=== PATIENT | male | born 1955 | race Hispanic/Latino ===

== ENCOUNTER 2019-03-12 12:16 | Outpatient (CLI) | payer MEDICARE, OTHER, SELFPAY ==
--- NOTE | ~2019-03-12 | XR_ITS ---
EXAMINATION: XR knee LT min 4V DATE: 03/12/2019 12:47 INDICATION: Left knee pain. TECHNIQUE: 5 views of left knee were obtained. COMPARISON: Left knee radiographs 11/09/2017 FINDINGS: Bone alignment is normal. No fracture. There is mild tricompartmental osteoarthritis. There is a small knee joint effusion. IMPRESSION: 1. Mild left knee osteoarthritis. 2. Small left knee joint effusion. Reviewed, dictated and finalized at location A. 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
== END 2019-03-12 12:17 | disposition home or self-care (01) ==
LOC: ANHIMG 12:25
PROVIDERS: PCP Family Medicine; Visit Provider Family Medicine
DX: M25.562 Pain in left knee (principal); M17.12 Unilateral primary osteoarthritis, left knee; M25.462 Effusion, left knee
CPT/HCPCS: 73564

== ENCOUNTER 2019-11-13 11:18 | Outpatient (CLI) | payer MEDICARE, OTHER, SELFPAY ==
[2019-11-13 11:42] LABS: Hematocrit 43.1 % (42.0-52.0); Hemoglobin 14.4 g/dL (14.0-18.0); Mean Corpuscular HGB Conc 33.4 g/dl (32-36); Mean Corpuscular Hemoglobin 29.6 pg (26-34); Mean Corpuscular Volume 88.5 fl (80-100); Mean Platelet Volume 10.3 fl (7.4-10.4); Platelet Count Result 184 k/mm3 (150-375); Red Blood Count 4.87 M/mm3 (4.6-6.20); Red Cell Distribution Width 12.5 % (11.5-14.5); White Blood Count 6.2 K/mm3 (4.5-10.0)
[2019-11-13 11:52] LABS: Alanine Aminotransferase 23 U/L (4-50); Albumin Level 4.1 g/dL (3.5-5.1); Alkaline Phosphatase 71 U/L (38-126); Anion Gap 10.7 mmol/L (7-16); Aspartate Amino Transferase 28 U/L (17-59); Bilirubin,Total 0.5 mg/dL (0.2-1.3); Blood Urea Nitrogen 17 mg/dL (9-20); Calcium 9.2 mg/dL (8.4-10.2); Carbon Dioxide 29 mmol/L (22-30); Chloride 102 mmol/L (98-107); Estimated Glomerular Filt Rate > 60; Glucose 120 mg/dL (75-110); Potassium 3.7 mmol/L (3.4-5.0); Sodium 138 mmol/L (137-145)
== END 2019-11-13 11:19 | disposition home or self-care (01) ==
LOC: ANHLAB 11:22
PROVIDERS: PCP Family Medicine; Visit Provider Physician Assistant
DX: I10 Essential (primary) hypertension (principal); R73.03 Prediabetes
CPT/HCPCS: 36415; 80053; 83036; 85027

== ENCOUNTER 2019-11-20 08:05 | Outpatient (CLI) | payer MEDICARE, OTHER, SELFPAY ==
[2019-11-20 08:49] LABS: Cholesterol 187 mg/dL (0-200); HDL Direct 36 mg/dL; Triglycerides 227 mg/dL (<150)
[2019-11-20 09:00] LABS: LDL Cholesterol Direct 103 mg/dL
== END 2019-11-20 08:06 | disposition home or self-care (01) ==
PROVIDERS: PCP Family Medicine; Visit Provider Physician Assistant
DX: E78.2 Mixed hyperlipidemia (principal)
CPT/HCPCS: 36415; 80061

== ENCOUNTER 2019-12-03 15:52 | Outpatient (CLI) | payer MEDICARE, OTHER, SELFPAY ==
--- NOTE | ~2019-12-03 | XR_ITS ---
XR_[id number]_CR 12/03/2019 16:19 Indication: Neck pain Procedure: 3 view cervical spine Comparison: No prior studies for comparison. Findings: There is degenerative retrolisthesis at C3-4. There is disc narrowing at C3-4, C5-6 and C6- 7 with endplate hypertrophy. No acute fracture or traumatic malalignment. No prevertebral soft tissue swelling. There is moderate facet hypertrophy. Odontoid process within normal limits. Lung apices ar e unremarkable. Impression: 1: Moderate cervical spondylosis. Reviewed, dictated and finalized at location A. Impression: 1: Moderate cervical spondylosis.
== END 2019-12-03 15:53 | disposition home or self-care (01) ==
PROVIDERS: PCP Family Medicine; Visit Provider Family Medicine
DX: M54.2 Cervicalgia (principal); M47.812 Spondylosis without myelopathy or radiculopathy, cervical region
CPT/HCPCS: 72040

== ENCOUNTER 2020-04-13 08:44 | Outpatient (CLI) | payer MEDICARE, OTHER, SELFPAY ==
[2020-04-13 09:26] LABS: Basophils Percent Auto 0.6 % (0.2-1.2); Eosinophils Absolute Auto 0.1 K/mm3 (0-0.3); Eosinophils Percent Auto 1.5 % (0-4.4); Hematocrit 44.3 % (42.0-52.0); Hemoglobin 14.6 g/dL (14.0-18.0); Immature Granulocyte Absolute 0.04 K/mm3 (0.00-0.031); Immature Granulocyte Percent A 0.6 % (0-0.5); Lymphocytes Absolute Auto 1.63 K/mm3 (0.9-3.2); Lymphocytes Percent Auto 23.8 % (18.3-44.2); Mean Corpuscular Hemoglobin 29.6 pg (26-34); Mean Corpuscular Volume 89.9 fl (80-100); Mean Platelet Volume 10.4 fl (7.4-10.4); Monocytes Absolute Auto 0.5 K/mm3 (0.1-0.6); Monocytes Percent Auto 7.3 % (2.6-8.5); Neutrophils Absolute Auto 4.5 K/mm3 (1.3-6.7); Neutrophils Percent Auto 66.2 % (45.5-73.1); Platelet Count Result 187 k/mm3 (150-375); Red Blood Count 4.93 M/mm3 (4.6-6.20); Red Cell Distribution Width 13.3 % (11.5-14.5); White Blood Count 6.8 K/mm3 (4.5-10.0)
[2020-04-13 09:42] LABS: Alanine Aminotransferase 25 U/L (4-50); Albumin Level 3.9 g/dL (3.5-5.1); Alkaline Phosphatase 60 U/L (38-126); Anion Gap 2 mmol/L (8-16); Aspartate Amino Transferase 29 U/L (17-59); Bilirubin,Total 0.5 mg/dL (0.2-1.3); Blood Urea Nitrogen 15 mg/dL (9-20); Calcium 9.4 mg/dL (8.4-10.2); Carbon Dioxide 35 mmol/L (22-30); Chloride 103 mmol/L (98-107); Cholesterol 210 mg/dL (0-200); Estimated Glomerular Filt Rate > 60; Glucose 115 mg/dL (75-110); HDL Direct 41 mg/dL; Potassium 5.2 mmol/L (3.4-5.0); Sodium 140 mmol/L (137-145); Triglycerides 168 mg/dL (<150)
[2020-04-13 09:53] LABS: LDL Cholesterol Direct 128 mg/dL
[2020-04-13 09:57] LABS: Hemoglobin A1C 5.9 % (<5.7)
== END 2020-04-13 08:45 | disposition home or self-care (01) ==
PROVIDERS: PCP Family Medicine; Visit Provider Family Medicine
DX: E78.2 Mixed hyperlipidemia (principal); I10 Essential (primary) hypertension; E11.9 Type 2 diabetes mellitus without complications
CPT/HCPCS: 36415; 80053; 80061; 83036; 85025

== ENCOUNTER 2020-04-18 02:16 | Outpatient (CLI) | payer MEDICARE, OTHER, SELFPAY ==
[2020-04-18 19:32] LABS: SARS-CoV-2 RNA PCR Negative
== END 2020-04-18 02:17 | disposition home or self-care (01) ==
LOC: ANHCOVIDDT 02:16
PROVIDERS: PCP Family Medicine; Visit Provider Orthopaedic Surgery
DX: Z01.812 Encounter for preprocedural laboratory examination (principal); Z20.822 Contact with and (suspected) exposure to COVID-19
CPT/HCPCS: C9803; U0003

== ENCOUNTER 2020-04-22 01:05 | Day surgery (SDC) | payer MEDICARE, OTHER, SELFPAY ==
[2020-04-16 10:55] VITALS: BMI 39.2
[2020-04-22] VITALS (9 sets, daily range): BP systolic 138–186; BP diastolic 69–85; PULSE 65–95; RESP 15–20; TEMP 36.1–36.6; O2SAT 93–100
[2020-04-22] MEDS: CELECOXIB 200 MG CAPSULE PO (06:55)
[2020-04-22] MEDS: LACTATED RINGERS 1,000 ML 30 ML IV CONT ×2 (06:55→10:21)
[2020-04-22] MEDS: ACETAMINOPHEN 500 MG TABLET 1000 MG PO (06:55)
--- NOTE | 2020-04-22 07:06 | WPDANESEPPF ---
Anes - Initial Pre Proc Eval Procedure: Operation Date: 04/22/20 07:30 Proposed Procedures p Left Rotator Cuff Repair - Tahd Rowan MD Date/Time: 04/22/20 07:06 Surgeon: Thad Rowan MD Pre Op Diagnosis: left rotator cuff tear Patient Data Age: 64 Gender: M Height: 5 ft 9 in Weight: 120.45 kg Allergies Allergy/AdvReac Type Severity Reaction Status Date / Time CARMINE Inhibitors Allergy Unknown coughing Verified 03/30/20 13:41 atorvastatin Allergy Unknown Joint Pain Verified 04/16/20 10:48 isosorbide Allergy Unknown Cough Verified 04/16/20 10:48 liraglutide Allergy Unknown Cough Verified 04/16/20 10:48 losartan Allergy Unknown coughing Verified 03/30/20 13:41 tamsulosin Allergy Unknown Dry Mouth Verified 04/16/20 11:21 Home Medications Medication Instructions Recorded Confirmed Type amlodipine 10 mg tablet 10 mg PO DAILY #90 tablet 07/26/19 04/16/20 Rx chlorhexidine gluconate 4 % 1 applic TOPICAL ONCE #237 ml 02/17/20 04/16/20 Rx topical liquid tramadol 50 mg tablet 50 mg PO Q8H PRN #30 tablet 03/23/20 04/16/20 Rx telmisartan 40 mg tablet 40 mg PO DAILY #90 tablet 04/07/20 04/16/20 Rx buspirone 10 mg PO BID 04/16/20 04/16/20 History escitalopram oxalate 10 mg PO HS 04/16/20 04/16/20 History furosemide 40 mg PO QAM 04/16/20 04/16/20 History ropinirole 0.5 mg PO HS 04/16/20 04/16/20 History Patient hx anesthesia problems: none Family hx anesthesia problems: none PMFSH Past Medical History Medical History Allergic rhinitis Diverticulosis of large intestine without hemorrhage DJD (degenerative joint disease) of knee Erectile dysfunction associated with vasculopathy Essential (primary) hypertension Generalized anxiety disorder Idiopathic chronic gout, unspecified site, without tophus (tophi) Knee joint effusion Knee pain, acute Left knee DJD Lumbar radicular syndrome Lumbar spondylosis MDD (major depressive disorder), recurrent episode, moderate Mixed hyperlipidemia Morbid (severe) obesity due to excess calories Prediabetes Restless legs syndrome Right knee DJD Rupture of right rotator cuff Trigger finger of right thumb Varicose veins of right lower extremity with pain Surgical History Surgical History History of repair of right rotator cuff Family History Family History Father Hypertension Cerebrovascular accident, Onset Age: 70 Family history of diabetes mellitus in first degree relative Patient's father is Mother Hypertension Cerebrovascular accident, Onset Age: 79 Family history of diabetes mellitus in first degree relative Patient's mother is Sibling Family history of diabetes mellitus in first degree relative Other Family history of arthritis Social History Social History Social History: Years smoked: 20 Smoking status: Former smoker Tobacco type: cigarettes Second hand tobacco smoke exposure: No Smoking end date: 04/10/89 Additional smoking assessment comments: STATES 1PK/WEEK/37YRS Alcohol intake: former Substance use: never Substance use type: does not use Living arrangements: with family 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
--- NOTE | 2020-04-22 07:20 | WPDHPUPDATE1 ---
History and Physical Update Update Date/Time: 04/22/20 07:20 History and Physical has been reviewed, including an updated exam of the patient. There are NO changes in the patient's condition. Risks, benefits, and alternatives have been discussed and questions answered. Patient agrees to proceed with procedure.
[2020-04-22] MEDS: ceFAZolin 3 GM/D5W 100 ML 100 ML IVPB (07:45)
--- NOTE | 2020-04-22 07:59 | WPDANESPNB ---
Anes - Peripheral Nerve Block Date/Time: 04/22/20 07:59 I have discussed with the patient/family/POA the placement of a peripheral nerve block for post-operative pain management, including associated risks, benefits, complications, and side effects. Alternative methods of post-operative analgesia were detailed. Questions were solicited and answers provided to the satisfaction of the patient/family/POA. Time-Out: A pre-procedural Time-Out was completed immediately before starting the procedure and confirmed: Patient Identification, Site, Procedure, Patient Position and the Availability of Requisite Equipment. Clinical Indications: Acute post-operative pain management requested by the operative surgeon. Nerve Block Insertion Note Anes-nerve block: interscalene left Needle: 22 gauge, stimulating, insulated echogenic needle. Needle length: 50 mm Technique: ultrasound Injectate: bupivacaine 0.5% with epi 5 mcg/ml (30) and dexamethasone (mg) (8) Observations: tolerated well Complications: none Procedure start time:: 734 Procedure end time:: 739
--- NOTE | 2020-04-22 10:12 | P.OP_ITS ---
Procedure Note - Detailed Date of procedure: 04/22/20 Pre-op diagnosis: left rotator cuff tear Post-op diagnosis: same Procedure performed: REPAIR OF LEFT ROTATOR CUFF Description of procedure: THE PATIENT WAS TAKEN TO THE OPERATING ROOM AND THEN INTUBATED AND PLACED IN THE BEACH CHAIR POSITION. THE LEFT UPPER EXTREMITY WAS PREPPED AND DRAPED IN THE NORMAL STERILE FASHION. AN INCISION WAS MADE IN BETWEEN THE DAYLIN-LATERAL ACROMION AND THE AC JOINT. NEXT A MINI OPEN INCISION WAS MADE THROUGH THE DELTOID MUSCLE EXPOSING THE SUBACROMIAL SPACE. A LIMITED ACROMIOPLASTY WAS PREFORMED. THE ROTATOR CUFF WAS IDENTIFIED. THERE WAS A LARG E TEAR TO THE ENTIRE CUFF. THERE WAS ALSO A VERTICAL TEAR THROUGH THE SUPRASPINATUS TENDON. THE GREATER TUBEROSITY WAS DEBRIDED TO BLEEDING BONE. ATHREX 5.5 SUTURE ANCHORS WERE PLACED IN TO GOOD BONE AND HAD VERY GOOD BITES. JUDITH-TOMAS TYPE REPAIRS WERE DONE TO THE ROTATOR CUFF AND THERE WAS GOOD APPROXIMATION TO THE GREATER TUBEROSITY. THE VERTICAL COMPONENT WAS ALSO REPAIRED WITH #2 FIBER WIRE AND #2 ETHIBOND. THE REPAIR WAS EXCELLENT. THERE WAS NO IMPINGEMENT ON THE REPAIR FROM THE ACROMION WITH RANGE OF MOTION. THE WOUND WAS IRRIGATED WITH COPIOUS AMOUNTS OF ANTIBIOTIC SOLUTION AND STERILE BETADINE WITH 1/2% STRENGTH DILUTED IN STERILE WATER, THEN IRRIGATED AGAIN WITH STERILE WATER. THE DELTOID MUSCLE WAS REPAIRED WITH #2 FIBER WIRE AND 0 VICRYL SUTURE. THE SUBCUTANEOUS LAYER WAS APPROXIMATED WITH 2-0 VICRYL. THE SKIN WAS APPROXIMATED WITH 3-0 QUIL AND DERMABOND. STERILE DRESSING WAS APPLIED. PATIENT WAS EXTUBATED. Anesthesia: GETA Surgeon: Thad Rowan MD Estimated blood loss (mL): 25 Drains: No Complications: No immediate complications Condition: stable Disposition: PACU
== END 2020-04-22 12:25 | disposition home or self-care (01) ==
PROVIDERS: PCP Family Medicine; Visit Provider Orthopaedic Surgery
PROC: (CPT 23420; principal; 2020-04-22 07:30)
DX: M75.102 Unspecified rotator cuff tear or rupture of left shoulder, not specified as traumatic (principal); G89.18 Other acute postprocedural pain; I10 Essential (primary) hypertension; F41.1 Generalized anxiety disorder; F33.1 Major depressive disorder, recurrent, moderate; E78.2 Mixed hyperlipidemia; R73.03 Prediabetes; G25.81 Restless legs syndrome; Z87.891 Personal history of nicotine dependence; E66.01 Morbid (severe) obesity due to excess calories; Z68.41 Body mass index [BMI] 40.0-44.9, adult
CPT/HCPCS: 23412; 64415; A9270; C1713; J0330; J0690; J1100; J2001; J2250; J2405; J2704; J3010; J7120

== ENCOUNTER 2020-06-25 09:17 | Outpatient (CLI) | payer MEDICARE, OTHER, SELFPAY ==
[2020-06-25 10:01] LABS: Hemoglobin A1C 5.5 % (<5.7)
[2020-06-25 10:05] LABS: Alanine Aminotransferase 18 U/L (4-50); Albumin Level 3.9 g/dL (3.5-5.1); Alkaline Phosphatase 66 U/L (38-126); Anion Gap 5 mmol/L (8-16); Aspartate Amino Transferase 24 U/L (17-59); Bilirubin,Total 0.4 mg/dL (0.2-1.3); Blood Urea Nitrogen 16 mg/dL (9-20); Calcium 9.1 mg/dL (8.4-10.2); Carbon Dioxide 31 mmol/L (22-30); Chloride 103 mmol/L (98-107); Estimated Glomerular Filt Rate > 60; Glucose 110 mg/dL (75-110); Potassium 4.3 mmol/L (3.4-5.0); Sodium 139 mmol/L (137-145)
[2020-06-25 10:13] LABS: Creatinine Urine 66.5 mg/dL
[2020-06-25 10:22] LABS: MALB Creatinine Ratio < 9.0 mg/g (0-30); Microalbumin Urine Random < 6.0 mg/L (0-16.7)
== END 2020-06-25 09:18 | disposition home or self-care (01) ==
PROVIDERS: PCP Family Medicine; Visit Provider Family Medicine
DX: E11.9 Type 2 diabetes mellitus without complications (principal); I10 Essential (primary) hypertension
CPT/HCPCS: 36415; 80053; 82043; 83036

== ENCOUNTER 2020-07-31 12:30 | Outpatient (CLI) | payer MEDICARE, OTHER, SELFPAY ==
--- NOTE | ~2020-07-31 | XR_ITS ---
EXAMINATION: XR lg joint inject/asp w image DATE: 07/31/2020 13:20 INDICATION: Chronic left hip arthritis and pain TECHNIQUE: A time-out was performed to verify the patient's name, date of , and procedure to b e performed. The procedure including the risks, benefits, and alternatives was discussed with the pat ient. Risks discussed included bleeding and infection. The patient understood the risks and agreed to proceed. The skin overlying the left hip joint was prepped and draped in usual sterile fashion. An esthetic was administered with 1% lidocaine subcutaneously. A 5 inch 22 G needle was advanced under fluoroscopic guidance into the joint. Injection of 1 mL of Omnipaque 240 confirmed intra-articular p osition of the needle. Subsequently, injectate consisting of 3 mm of a 2:1 mixture of 0.5% Marcaine: 80 mg/mL Depo-Medrol for a total dose of 80 mg Depo-Medrol was instilled. Washout of contrast was se en confirming intra-articular administration. The needle was removed and the entry site was cleaned a nd dressed. There were no immediate complications. Fluoroscopy exposure time was 0.1 minutes. The to adriana number of images was 2. FINDINGS: Real-time fluoroscopy demonstrates the needle in the left hip joint. Patient's pain prior t o procedure:06/17. Patient's pain following the procedure: 04/19. IMPRESSION: 1. Left hip injection of local anesthetic and steroid with decrease in the patient's presenting pain. Reviewed, dictated and finalized at location A. IMPRESSION: 1. Left hip injection of local anesthetic and steroid with decrease in the clyde ent's presenting pain.
== END 2020-07-31 12:31 | disposition home or self-care (01) ==
LOC: ANHIMG 12:35
PROVIDERS: PCP Family Medicine; Visit Provider Nurse Practitioner Family
DX: M16.12 Unilateral primary osteoarthritis, left hip (principal)
CPT/HCPCS: 20610; 77002; J1040; Q9966

== ENCOUNTER 2021-01-15 08:37 | Outpatient (CLI) | payer MEDICARE, OTHER, SELFPAY ==
[2021-01-15 09:51] LABS: Basophils Percent Auto 0.6 % (0.2-1.2); Eosinophils Absolute Auto 0.2 K/mm3 (0-0.3); Eosinophils Percent Auto 3.5 % (0-4.4); Hemoglobin 14.6 g/dL (14.0-18.0); Immature Granulocyte Absolute 0.03 K/mm3 (0.00-0.031); Immature Granulocyte Percent A 0.5 % (0-0.5); Lymphocytes Absolute Auto 1.43 K/mm3 (0.9-3.2); Lymphocytes Percent Auto 22.6 % (18.3-44.2); Mean Corpuscular HGB Conc 33.2 g/dl (32-36); Mean Corpuscular Hemoglobin 30.2 pg (26-34); Mean Corpuscular Volume 90.9 fl (80-100); Mean Platelet Volume 10.4 fl (7.4-10.4); Monocytes Absolute Auto 0.4 K/mm3 (0.1-0.6); Monocytes Percent Auto 6.5 % (2.6-8.5); Neutrophils Absolute Auto 4.2 K/mm3 (1.3-6.7); Neutrophils Percent Auto 66.3 % (45.5-73.1); Platelet Count Result 183 k/mm3 (150-375); Red Blood Count 4.84 M/mm3 (4.6-6.20); White Blood Count 6.3 K/mm3 (4.5-10.0)
[2021-01-15 10:04] LABS: Alanine Aminotransferase 16 U/L (4-50); Albumin Level 4.2 g/dL (3.5-5.1); Alkaline Phosphatase 66 U/L (38-126); Anion Gap 3 mmol/L (8-16); Aspartate Amino Transferase 23 U/L (17-59); Bilirubin,Total 0.5 mg/dL (0.2-1.3); Blood Urea Nitrogen 13 mg/dL (9-20); Calcium 9.3 mg/dL (8.4-10.2); Carbon Dioxide 32 mmol/L (22-30); Chloride 105 mmol/L (98-107); Cholesterol 193 mg/dL (0-200); Estimated Glomerular Filt Rate > 60; Glucose 115 mg/dL (65-110); HDL Direct 50 mg/dL; Potassium 4.3 mmol/L (3.4-5.0); Sodium 140 mmol/L (137-145); Triglycerides 110 mg/dL (<150)
[2021-01-15 10:13] LABS: Hemoglobin A1C 5.7 % (<5.7)
[2021-01-15 10:15] LABS: LDL Cholesterol Direct 97 mg/dL
[2021-01-19 22:19] LABS: PSA, Free 0.07 ng/mL; PSA, Total 0.2 ng/mL (<=4.0)
== END 2021-01-15 08:38 | disposition home or self-care (01) ==
PROVIDERS: PCP Family Medicine; Visit Provider Family Medicine
DX: I10 Essential (primary) hypertension (principal); N40.1 Benign prostatic hyperplasia with lower urinary tract symptoms; E78.2 Mixed hyperlipidemia; E11.9 Type 2 diabetes mellitus without complications
CPT/HCPCS: 36415; 80053; 80061; 83036; 84153; 84154; 85025

== ENCOUNTER 2021-06-22 07:35 | Outpatient (CLI) | payer MEDICARE, OTHER, SELFPAY ==
[2021-06-22 07:59] LABS: Basophils Percent Auto 0.6 % (0.2-1.2); Eosinophils Absolute Auto 0.2 K/mm3 (0-0.3); Eosinophils Percent Auto 2.6 % (0-4.4); Hematocrit 43.8 % (42.0-52.0); Hemoglobin 14.4 g/dL (14.0-18.0); Immature Granulocyte Absolute 0.03 K/mm3 (0.00-0.031); Immature Granulocyte Percent A 0.5 % (0-0.5); Lymphocytes Percent Auto 27.6 % (18.3-44.2); Mean Corpuscular HGB Conc 32.9 g/dl (32-36); Mean Corpuscular Hemoglobin 30.3 pg (26-34); Mean Corpuscular Volume 92.2 fl (80-100); Mean Platelet Volume 9.9 fl (7.4-10.4); Monocytes Absolute Auto 0.5 K/mm3 (0.1-0.6); Monocytes Percent Auto 7.6 % (2.6-8.5); Neutrophils Absolute Auto 3.8 K/mm3 (1.3-6.7); Neutrophils Percent Auto 61.1 % (45.5-73.1); Platelet Count Result 176 k/mm3 (150-375); Red Blood Count 4.75 M/mm3 (4.6-6.20); White Blood Count 6.2 K/mm3 (4.5-10.0)
[2021-06-22 08:09] LABS: Alanine Aminotransferase 19 U/L (4-50); Albumin Level 4.1 g/dL (3.5-5.1); Alkaline Phosphatase 65 U/L (38-126); Anion Gap 3 mmol/L (8-16); Aspartate Amino Transferase 35 U/L (17-59); Bilirubin,Total 0.6 mg/dL (0.2-1.3); Blood Urea Nitrogen 13 mg/dL (9-20); Calcium 9.1 mg/dL (8.4-10.2); Carbon Dioxide 30 mmol/L (22-30); Chloride 104 mmol/L (98-107); Estimated Glomerular Filt Rate > 60; Glucose 117 mg/dL (65-110); Magnesium 1.9 mg/dL (1.6-2.3); Potassium 4.1 mmol/L (3.4-5.0); Sodium 137 mmol/L (137-145)
[2021-06-22 08:13] LABS: Hemoglobin A1C 5.6 % (<5.7)
== END 2021-06-22 07:36 | disposition home or self-care (01) ==
LOC: ANHLAB 07:39
PROVIDERS: PCP Family Medicine; Visit Provider Nurse Practitioner Gerontology
DX: I10 Essential (primary) hypertension (principal); R60.9 Edema, unspecified; R25.2 Cramp and spasm; R55 Syncope and collapse; R73.03 Prediabetes
CPT/HCPCS: 36415; 80053; 83036; 83735; 85025

== ENCOUNTER 2021-07-16 13:19 | Outpatient (CLI) | payer MEDICARE, OTHER, SELFPAY ==
--- NOTE | ~2021-07-16 | US_ITS ---
EXAMINATION: US venous doppler [facility] DATE: 07/16/2021 15:35 INDICATION: Lower limb pain and swelling TECHNIQUE: Grayscale ultrasound images without and with compression and Doppler ultrasound images of the bilateral lower extremity veins were obtained. COMPARISON: None. FINDINGS: The visualized portions of right common femoral vein, profunda (deep) femoral vein, femoral vein, pop liteal vein, posterior tibial veins, peroneal veins, gastrocnemius vein, lesser saphenous vein and gr eater saphenous vein outflow are patent. The visualized portions of left common femoral vein, profunda femoral vein, femoral vein, popliteal v ein, posterior tibial veins, peroneal veins, gastrocnemius vein, lesser saphenous vein and greater sa phenous vein outflow are patent. IMPRESSION: 1. No deep venous thrombosis in either lower limb. Reviewed, dictated and finalized at location B.
--- NOTE | ~2021-07-16 | US_ITS ---
EXAMINATION: US art doppler w press LE BI DATE: 07/16/2021 15:33 INDICATION: Peripheral vascular disease with bilateral lower limb pain and swelling TECHNIQUE: Segmental pressures and plethysmographic and Doppler waveforms of the brachial and lower e xtremity arteries were obtained. COMPARISON: None. FINDINGS: Right and left brachial artery pressures of 145 mm Hg and 141 mm Hg, respectively, are concordant (no rmal difference <= 30 mmHg). The right and left high-thigh pressure indices are unable to be obtained due to inability to occlude the vessels. The right ankle-brachial index (LINDSAY) is 1.22 (normal >= 0.9-1). The right great toe-brachial index (T BI) is 1.03 (normal >= 0.6-0.8). The right lower extremity segmental pressure gradients are increased between the right [id number]-[id number] popliteal artery and the right dorsalis pedis artery (normal gradie nts <= 20-30 mmHg between adjacent levels on the same leg or the same levels on the two legs). Arteri al waveforms are triphasic at the right common femoral, superficial femoral, popliteal and dorsalis p sera arteries and biphasic in the right posterior tibial artery with brisk systolic upstrokes through out the arteries of the right lower limb. The left LINDSAY is 1.08. The left TBI is 0.76. The left lower extremity segmental pressure gradients are normal. Arterial waveforms are biphasic with brisk systolic upstrokes throughout the arteries of the left lower limb. IMPRESSION: 1. Normal LINDSAY's and TBI's bilaterally. No significant arterial occlusive disease. Reviewed, dictated and finalized at location B. IMPRESSION: 1. Normal LINDSAY's and TBI's bilaterally. No significant arterial occlusive diseas e.
== END 2021-07-16 13:20 | disposition home or self-care (01) ==
PROVIDERS: PCP Family Medicine; Visit Provider Nurse Practitioner Gerontology
DX: I73.9 Peripheral vascular disease, unspecified (principal); M79.89 Other specified soft tissue disorders
CPT/HCPCS: 93923; 93970

== ENCOUNTER 2022-04-01 00:08 | Day surgery (SDC) | payer MEDICARE, OTHER, SELFPAY ==
[2022-01-14 12:03] VITALS: BMI 40.6
--- NOTE | 2022-01-27 14:02 | PM.HPGS ---
History of Present Illness History of Present Illness Consent: Risks, benefits, and alternatives have been discussed and questions answered. Patient agrees to proceed with procedure. Chief complaint: neoplasm screening Narrative: Matthew Alcantar is a 66 year old male Referred for colon cancer screening. His last examination was 11 years ago. Review of Systems Review of Systems: All systems reviewed & are unremarkable except as noted in HPI and below PMFSH Past Medical History Medical History Allergic rhinitis Degenerative joint disease of left hip Diverticulosis of large intestine without hemorrhage DJD (degenerative joint disease) of knee Erectile dysfunction associated with vasculopathy Essential (primary) hypertension Generalized anxiety disorder Idiopathic chronic gout, unspecified site, without tophus (tophi) Knee joint effusion Knee pain, acute Left knee DJD Lumbar radicular syndrome Lumbar spondylosis MDD (major depressive disorder), recurrent episode, moderate Mixed hyperlipidemia Morbid (severe) obesity due to excess calories Prediabetes Restless legs syndrome Right knee DJD Rotator cuff tear, left Rupture of right rotator cuff Trigger finger of right thumb Varicose veins of both lower extremities Varicose veins of right lower extremity with pain Surgical History Surgical History History of repair of right rotator cuff Family History Family History Father Hypertension Cerebrovascular accident, Onset Age: 70 Family history of diabetes mellitus in first degree relative Patient's father is Mother Hypertension Cerebrovascular accident, Onset Age: 79 Family history of diabetes mellitus in first degree relative Patient's mother is Sibling Family history of diabetes mellitus in first degree relative Other Family history of arthritis Social History Social History Social History: Years smoked: 20 Smoking status: Former smoker Tobacco type: cigarettes Second hand tobacco smoke exposure: No Smoking end date: 04/10/89 Additional smoking assessment comments: STATES 1PK/WEEK/37YRS Alcohol intake: former Alcohol use details: Alcoholism Substance use: never Substance use type: does not use Living arrangements: other Additional living arrangements comments: with sp 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 [employer] Gender identity (if verbalized by the patient): Male Sexual Orientation (if Verbalized by the Patient): Straight or Heterosexual Spiritual care concerns: No Agree to blood products: Yes Meds Home Medications and Allergies Home Medications Medication Instructions Recorded Confirmed Type ropinirole 0.5 mg tablet 1 mg PO BID #120 tabs 09/01/20 01/14/22 Rx escitalopram oxalate 10 mg tablet See Rx Instructions .Route 04/28/21 01/14/22 Rx .COMPLEX #180 tabs amlodipine 10 mg tablet See Rx Instructions .Route 01/25/22 Rx .COMPLEX #90 tabs buspirone 15 mg tablet 15 mg PO TID #180 tabs 01/25/22 Rx celecoxib 100 mg capsule See Rx Instructions .Route 01/25/22 Rx .COMPLEX #60 caps cyclobenzaprine 5 mg tablet See Rx Instructions .Route 01/25/22 Rx .COMPLEX #60 tabs finasteride 5 mg tablet See Rx Instructions .Route 01/25/22 Rx .COMPLEX #90 tabs furosemide 20 mg tablet See Rx Instructions .Route 01/25/22 Rx .COMPLEX #90 tabs tamsulosin 0.4 mg capsule 0.4 mg PO QHS #90 caps 01/25/22 Rx telmisartan 40 mg tablet See Rx Instructions .Route 01/25/22 Rx .COMPLEX #90 tabs tramadol 50 mg tablet 50 mg PO Q8H #30 tabs 01/25/22 Rx trazodone 100 mg tablet See Rx Instructions .Route 01/25/22 Rx .COMPLEX #90 tabs Allergies Allergy/AdvReac
[2022-03-24 14:11] VITALS: BMI 38.4
[2022-04-01 09:52] VITALS: BP 150/76; PULSE 76; RESP 20; TEMP 36.4; O2SAT 97; BMI 39.6
--- NOTE | 2022-04-01 09:55 | PM.HPGS ---
History of Present Illness History of Present Illness Consent: Risks, benefits, and alternatives have been discussed and questions answered. Patient agrees to proceed with procedure. Chief complaint: neoplasm screening Narrative: Matthew Alcantar is a 66 year old male referred for colon cancer screening. His last colonoscopy was 11 years ago. Review of Systems Review of Systems: All systems reviewed & are unremarkable except as noted in HPI and below PMFSH Past Medical History Medical History Allergic rhinitis Degenerative joint disease of left hip Diverticulosis of large intestine without hemorrhage DJD (degenerative joint disease) of knee Erectile dysfunction associated with vasculopathy Essential (primary) hypertension Generalized anxiety disorder Idiopathic chronic gout, unspecified site, without tophus (tophi) Knee joint effusion Knee pain, acute Left knee DJD Lumbar radicular syndrome Lumbar spondylosis MDD (major depressive disorder), recurrent episode, moderate Mixed hyperlipidemia Morbid (severe) obesity due to excess calories Prediabetes Restless legs syndrome Right knee DJD Rotator cuff tear, left Rupture of right rotator cuff Trigger finger of right thumb Varicose veins of both lower extremities Varicose veins of right lower extremity with pain Surgical History Surgical History History of repair of right rotator cuff Family History Family History Father Hypertension Cerebrovascular accident, Onset Age: 70 Family history of diabetes mellitus in first degree relative Patient's father is Mother Hypertension Cerebrovascular accident, Onset Age: 79 Family history of diabetes mellitus in first degree relative Patient's mother is Sibling Family history of diabetes mellitus in first degree relative Other Family history of arthritis Social History Social History Social History: Years smoked: 17 Smoking status: Former smoker Tobacco type: cigarettes Second hand tobacco smoke exposure: No Smoking end date: 04/10/89 Additional smoking assessment comments: STATES 1PK/WEEK/37YRS Alcohol intake: former Alcohol use details: Alcoholism Substance use: never Substance use type: does not use Living arrangements: with family Additional living arrangements comments: with sp 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 [employer] Gender identity (if verbalized by the patient): Male Sexual Orientation (if Verbalized by the Patient): Straight or Heterosexual Spiritual care concerns: No Agree to blood products: Yes Meds Home Medications and Allergies Home Medications Medication Instructions Recorded Confirmed Type escitalopram oxalate 10 mg tablet See Rx Instructions .Route 04/28/21 01/31/22 Rx .COMPLEX #180 tabs amlodipine 10 mg tablet See Rx Instructions .Route 01/25/22 03/24/22 Rx .COMPLEX #90 tabs buspirone 15 mg tablet 15 mg PO TID #180 tabs 01/25/22 03/24/22 Rx celecoxib 100 mg capsule See Rx Instructions .Route 01/25/22 03/24/22 Rx .COMPLEX #60 caps cyclobenzaprine 5 mg tablet See Rx Instructions .Route 01/25/22 03/24/22 Rx .COMPLEX #60 tabs finasteride 5 mg tablet See Rx Instructions .Route 01/25/22 03/24/22 Rx .COMPLEX #90 tabs furosemide 20 mg tablet See Rx Instructions .Route 01/25/22 03/24/22 Rx .COMPLEX #90 tabs tamsulosin 0.4 mg capsule 0.4 mg PO QHS #90 caps 02/04/22 03/24/22 Rx telmisartan 40 mg tablet See Rx Instructions .Route 02/04/22 03/24/22 Rx .COMPLEX #90 tabs quetiapine 25 mg tablet (Seroquel) 25 mg PO QHS #30 tabs 02/15/22 03/24/22 Rx tramadol 50 mg tablet 50 mg PO Q8H #30 tabs 03/07/22 03/24/22 Rx ropinirole 0.5 mg tablet See Rx In
[2022-04-01] MEDS: LACTATED RINGERS 1,000 ML 150 ML IV CONT (10:00)
--- NOTE | 2022-04-01 10:02 | WPDANESEPPF ---
Anes - Initial Pre Proc Eval Procedure: Operation Date: 04/01/22 11:30 Proposed Procedures p Screening Colonoscopy - Angel Chang MD Date/Time: 04/01/22 10:02 Surgeon: Angel Chang MD Pre Op Diagnosis: neoplasm screening Patient Data Age: 66 Gender: M Height: 1.75 m Weight: 121.9 kg Last Vital Signs Temp 36.4 C 04/01/22 09:52 Pulse 76 04/01/22 09:52 Resp 20 04/01/22 09:52 BP 150/76 H 04/01/22 09:52 Pulse Ox 97 04/01/22 09:52 O2 Del Method Room Air 04/01/22 09:52 Allergies Allergy/AdvReac Type Severity Reaction Status Date / Time CARMINE Inhibitors Allergy Unknown coughing Verified 04/01/22 09:45 atorvastatin Allergy Unknown Joint Pain Verified 04/01/22 09:45 isosorbide Allergy Unknown Cough Verified 04/01/22 09:45 liraglutide Allergy Unknown Cough Verified 04/01/22 09:45 losartan Allergy Unknown coughing Verified 04/01/22 09:45 tamsulosin Allergy Unknown Dry Mouth Verified 04/01/22 09:45 Home Medications Medication Instructions Recorded Confirmed Type escitalopram oxalate 10 mg tablet See Rx Instructions .Route 04/28/21 01/31/22 Rx .COMPLEX #180 tabs amlodipine 10 mg tablet See Rx Instructions .Route 01/25/22 03/24/22 Rx .COMPLEX #90 tabs buspirone 15 mg tablet 15 mg PO TID #180 tabs 01/25/22 03/24/22 Rx celecoxib 100 mg capsule See Rx Instructions .Route 01/25/22 03/24/22 Rx .COMPLEX #60 caps cyclobenzaprine 5 mg tablet See Rx Instructions .Route 01/25/22 03/24/22 Rx .COMPLEX #60 tabs finasteride 5 mg tablet See Rx Instructions .Route 01/25/22 03/24/22 Rx .COMPLEX #90 tabs furosemide 20 mg tablet See Rx Instructions .Route 01/25/22 03/24/22 Rx .COMPLEX #90 tabs tamsulosin 0.4 mg capsule 0.4 mg PO QHS #90 caps 02/04/22 03/24/22 Rx telmisartan 40 mg tablet See Rx Instructions .Route 02/04/22 03/24/22 Rx .COMPLEX #90 tabs quetiapine 25 mg tablet (Seroquel) 25 mg PO QHS #30 tabs 02/15/22 03/24/22 Rx tramadol 50 mg tablet 50 mg PO Q8H #30 tabs 03/07/22 03/24/22 Rx ropinirole 0.5 mg tablet See Rx Instructions .Route 03/08/22 03/24/22 Rx .COMPLEX #120 tabs Patient hx anesthesia problems: none Family hx anesthesia problems: none Results Review: All pre-operative results and documents have been reviewed as part of the pre-operative evaluation. [facility] Past Medical History Medical History Allergic rhinitis Degenerative joint disease of left hip Diverticulosis of large intestine without hemorrhage DJD (degenerative joint disease) of knee Erectile dysfunction associated with vasculopathy Essential (primary) hypertension Generalized anxiety disorder Idiopathic chronic gout, unspecified site, without tophus (tophi) Knee joint effusion Knee pain, acute Left knee DJD Lumbar radicular syndrome Lumbar spondylosis MDD (major depressive disorder), recurrent episode, moderate Mixed hyperlipidemia Morbid (severe) obesity due to excess calories Prediabetes Restless legs syndrome Right knee DJD Rotator cuff tear, left Rupture of right rotator cuff Trigger finger of right thumb Varicose veins of both lower extremities Varicose veins of right lower extremity with pain Surgical History Surgical History History of repair of right rotator cuff Family History Family History Father Hypertension Cerebrovascular accident, Onset Age: 70 Family history of diabetes mellitus in first degree relative Patient's father is Mother Hypertension Cerebrovascular accident, Onset Age: 79 Family history of diabetes mellitus in first degree relative Patient's mother is Sibling Family history of diabetes mellitus in first degree relative Other Family history of arthritis Social History Social History (Reviewed 04/01/22 @ 10:02 by Keaton Beavers
[2022-04-01 10:40] VITALS: BP 121/63; PULSE 58; RESP 16; O2SAT 96
[2022-04-01 10:50] VITALS: BP 118/66; PULSE 55; RESP 21; O2SAT 96
[2022-04-01 11:00] VITALS: BP 120/70; PULSE 60; RESP 20; O2SAT 98
== END 2022-04-01 11:14 | disposition home or self-care (01) ==
PROVIDERS: PCP Family Medicine; Visit Provider Internal Medicine Gastroenterology
PROC: 0DJD8ZZ Inspection of Lower Intestinal Tract, Via Natural or Artificial Opening Endoscopic (ICD-10-PCS; CPT 45378; principal; 2022-04-01 11:30)
DX: Z12.11 Encounter for screening for malignant neoplasm of colon (principal); K57.30 Diverticulosis of large intestine without perforation or abscess without bleeding; K64.8 Other hemorrhoids; E78.2 Mixed hyperlipidemia; R73.03 Prediabetes; G25.81 Restless legs syndrome; M10.9 Gout, unspecified; I10 Essential (primary) hypertension; F41.1 Generalized anxiety disorder; F33.1 Major depressive disorder, recurrent, moderate; Z87.891 Personal history of nicotine dependence
CPT/HCPCS: G0121; J2704; J7120

== ENCOUNTER 2022-04-09 17:29 | Emergency (ER) | payer MEDICARE, OTHER, SELFPAY ==
[2022-04-09 17:41] VITALS: BP 150/66; PULSE 64; RESP 20; TEMP 36.4; O2SAT 99
[2022-04-09 17:43] VITALS: BP 150/66; PULSE 64; RESP 20; TEMP 36.4; O2SAT 99
--- NOTE | 2022-04-09 18:30 | ED.GENADULT ---
HPI - General Adult General Chief complaint: Upper Respiratory Infection Stated complaint: uri Time Seen by Provider: 04/09/22 18:30 Source: patient Mode of arrival: ambulatory Limitations: no limitations History of Present Illness HPI narrative: 58-year-old male presents to the [facility] with complaints of cold symptoms for the past 3-4 days. Patient states that he woke up Monday morning was feeling bad such as nausea, diarrhea chills. Patient states he took a COVID test today was negative. Patient states he was able to get into his doctor next day to see about getting the antibiotic however his daughter states that he mostly has likely a virus and recommended that he go home and rest. Patient states he was feeling better Monday return to work. Patient states he woke up this morning having body aches, chills fevers and just overall not feeling well. Patient states that he took another COVID test today and came up positive. Related Data Allergies Allergy/AdvReac Type Severity Reaction Status Date / Time CARMINE Inhibitors Allergy Unknown coughing Verified 04/09/22 17:41 atorvastatin Allergy Unknown Joint Pain Verified 04/09/22 17:41 isosorbide Allergy Unknown Cough Verified 04/09/22 17:41 liraglutide Allergy Unknown Cough Verified 04/09/22 17:41 losartan Allergy Unknown coughing Verified 04/09/22 17:41 tamsulosin Allergy Unknown Dry Mouth Verified 04/09/22 17:41 Review of Systems Review of Systems: CONSTITUTIONAL: Positive fever, body aches and chills, or sweats. EYES: Denies visual changes, redness, or discharge. ENT: Positive rhinorrhea, congestion, denies sore throat, or otalgia. CARDIOVASCULAR: Denies chest pain, palpitations, or edema. RESPIRATORY: Denies cough or dyspnea. GASTROINTESTINAL: Denies abdominal pain, nausea, vomiting, or diarrhea. GENITOURINARY: Denies dysuria or hematuria. SKIN: Denies rash or itching. MUSCULOSKELETAL: Denies back pain, joint pain, or myalgia. NEUROLOGIC: Denies headache, numbness, or weakness. PSYCHIATRIC: Denies anxiety or depression. 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 Essential (primary) hypertension Generalized anxiety disorder Idiopathic chronic gout, unspecified site, without tophus (tophi) Knee joint effusion Knee pain, acute Left knee DJD Lumbar radicular syndrome Lumbar spondylosis MDD (major depressive disorder), recurrent episode, moderate Mixed hyperlipidemia Morbid (severe) obesity due to excess calories Prediabetes Restless legs syndrome Right knee DJD Rotator cuff tear, left Rupture of right rotator cuff Trigger finger of right thumb Varicose veins of both lower extremities Varicose veins of right lower extremity with pain Surgical History Surgical History History of repair of right rotator cuff Family History Family History Father Hypertension Cerebrovascular accident, Onset Age: 70 Family history of diabetes mellitus in first degree relative Patient's father is Mother Hypertension Cerebrovascular accident, Onset Age: 79 Family history of diabetes mellitus in first degree relative Patient's mother is Sibling Family history of diabetes mellitus in first degree relative Other Family history of arthritis Social History Social History Social History: Years smoked: 17 Smoking status: Former smoker Tobacco type: cigarettes Second hand tobacco smoke exposure: No Smoking end date: 04/10/89 Additional smoking assessment comments: STATES 1PK/WEEK/37YRS Alcohol intake: fo
== END 2022-04-09 18:42 | disposition home or self-care (01) ==
PROVIDERS: Emergency Provider Nurse Practitioner Family; PCP Family Medicine
DX: U07.1 COVID-19 (principal); M16.12 Unilateral primary osteoarthritis, left hip; I10 Essential (primary) hypertension; M17.0 Bilateral primary osteoarthritis of knee; M47.816 Spondylosis without myelopathy or radiculopathy, lumbar region; E66.01 Morbid (severe) obesity due to excess calories; Z68.41 Body mass index [BMI] 40.0-44.9, adult; R73.03 Prediabetes; Z87.891 Personal history of nicotine dependence
CPT/HCPCS: 99213; G0463

== ENCOUNTER 2022-06-02 07:21 | Outpatient (CLI) | payer MEDICARE, OTHER, SELFPAY ==
[2022-06-02 07:46] LABS: Basophils Percent Auto 0.5 % (0.2-1.2); Eosinophils Absolute Auto 0.2 K/mm3 (0-0.3); Eosinophils Percent Auto 2.9 % (0-4.4); Hematocrit 42.7 % (42.0-52.0); Immature Granulocyte Absolute 0.03 K/mm3 (0.00-0.031); Immature Granulocyte Percent A 0.5 % (0-0.5); Lymphocytes Absolute Auto 1.45 K/mm3 (0.9-3.2); Lymphocytes Percent Auto 23.5 % (18.3-44.2); Mean Corpuscular HGB Conc 32.8 g/dl (32-36); Mean Corpuscular Hemoglobin 29.3 pg (26-34); Mean Corpuscular Volume 89.3 fl (80-100); Mean Platelet Volume 10.2 fl (7.4-10.4); Monocytes Absolute Auto 0.4 K/mm3 (0.1-0.6); Monocytes Percent Auto 7.1 % (2.6-8.5); Neutrophils Percent Auto 65.5 % (45.5-73.1); Platelet Count Result 173 k/mm3 (150-375); Red Blood Count 4.78 M/mm3 (4.6-6.20); Red Cell Distribution Width 13.2 % (11.5-14.5); White Blood Count 6.2 K/mm3 (4.5-10.0)
[2022-06-02 07:58] LABS: Alanine Aminotransferase 22 U/L (6-50); Alkaline Phosphatase 73 U/L (38-126); Anion Gap 6 mmol/L (8-16); Aspartate Amino Transferase 26 U/L (17-59); Bilirubin,Total 0.6 mg/dL (0.2-1.3); Blood Urea Nitrogen 18 mg/dL (9-20); Calcium 8.8 mg/dL (8.4-10.2); Carbon Dioxide 30 mmol/L (22-30); Chloride 104 mmol/L (98-107); Cholesterol 204 mg/dL (0-200); Estimated Glomerular Filt Rate > 60; Glucose 124 mg/dL (65-110); HDL Direct 43 mg/dL; Hemoglobin A1C 5.8 % (<5.7); Potassium 4.1 mmol/L (3.4-5.0); Sodium 140 mmol/L (137-145); Triglycerides 141 mg/dL (<150); Uric Acid 6.6 mg/dL (3.5-8.5)
[2022-06-02 08:09] LABS: LDL Cholesterol Direct 112 mg/dL
[2022-06-02 08:25] LABS: Thyroid Stimulating Hormone 0.925 uIU/mL (0.465-4.680)
[2022-06-05 23:16] LABS: Vitamin D 1,25 (OH)2 Total 45 pg/mL (18-72); Vitamin D2 1,25 (OH)2 <8 pg/mL; Vitamin D3 1,25 (OH)2 45 pg/mL
== END 2022-06-02 07:22 | disposition home or self-care (01) ==
LOC: ANHLAB 07:23
PROVIDERS: PCP Family Medicine; Visit Provider Family Medicine
DX: E79.0 Hyperuricemia without signs of inflammatory arthritis and tophaceous disease (principal); E55.9 Vitamin D deficiency, unspecified; E11.9 Type 2 diabetes mellitus without complications; E03.9 Hypothyroidism, unspecified; N40.0 Benign prostatic hyperplasia without lower urinary tract symptoms; M17.10 Unilateral primary osteoarthritis, unspecified knee; M16.12 Unilateral primary osteoarthritis, left hip; I10 Essential (primary) hypertension; G47.30 Sleep apnea, unspecified; F51.04 Psychophysiologic insomnia; F32.9 Major depressive disorder, single episode, unspecified; E78.2 Mixed hyperlipidemia
CPT/HCPCS: 36415; 80053; 80061; 82652; 83036; 84443; 84550; 85025

== ENCOUNTER 2022-08-03 16:05 | Outpatient (CLI) | payer MEDICARE, OTHER, SELFPAY ==
--- NOTE | ~2022-08-03 | CT_ITS ---
EXAMINATION: CT abdomen pelvis wo con DATE: 08/03/2022 16:35 INDICATION: Left flank pain TECHNIQUE: Computed tomography (CT) of the abdomen and pelvis was performed without intravenous contr ast. The dose-length product (DLP) was 945.85 mGy-cm. Automated exposure control and iterative recons truction technique were employed. COMPARISON: 05/06/2012 FINDINGS: Minimal dependent atelectasis is present in the lung bases. The heart size is normal. Punct ate calcifications of the otherwise normal liver likely reflect old granulomatous disease. The spleen , pancreas, gallbladder, and adrenal glands are normal. There is a 1.6 cm cyst of the left kidney. No stones are identified in the kidneys, ureters, or bladder. No hydronephrosis or hydroureter. No path ologically enlarged abdominal or pelvic lymph nodes are identified. There is calcified atherosclerosi s of the aorta and many of the other arteries. No free intraperitoneal gas or evidence of bowel obstr uction. The appendix is normal. There is moderate osteoarthritis of the left hip. There is moderate l umbar spondylosis. IMPRESSION: 1. No CT correlate for the patient's symptoms. Reviewed, dictated and finalized at location A.
[2022-08-03 16:30] LABS: Basophils Percent Auto 0.4 % (0.2-1.2); Eosinophils Absolute Auto 0.2 K/mm3 (0-0.3); Eosinophils Percent Auto 1.8 % (0-4.4); Hematocrit 42.1 % (42.0-52.0); Immature Granulocyte Absolute 0.03 K/mm3 (0.00-0.031); Immature Granulocyte Percent A 0.3 % (0-0.5); Lymphocytes Percent Auto 19.9 % (18.3-44.2); Mean Corpuscular HGB Conc 33.3 g/dl (32-36); Mean Corpuscular Hemoglobin 29.9 pg (26-34); Monocytes Absolute Auto 0.7 K/mm3 (0.1-0.6); Monocytes Percent Auto 7.5 % (2.6-8.5); Neutrophils Absolute Auto 6.4 K/mm3 (1.3-6.7); Neutrophils Percent Auto 70.1 % (45.5-73.1); Platelet Count Result 174 k/mm3 (150-375); Red Blood Count 4.68 M/mm3 (4.6-6.20); Red Cell Distribution Width 12.8 % (11.5-14.5); White Blood Count 9.1 K/mm3 (4.5-10.0)
[2022-08-03 16:45] LABS: Alanine Aminotransferase 22 U/L (6-50); Albumin Level 4.1 g/dL (3.5-5.1); Alkaline Phosphatase 57 U/L (38-126); Anion Gap 3 mmol/L (8-16); Aspartate Amino Transferase 24 U/L (17-59); Bilirubin,Total 0.6 mg/dL (0.2-1.3); Blood Urea Nitrogen 14 mg/dL (9-20); Calcium 8.9 mg/dL (8.4-10.2); Carbon Dioxide 33 mmol/L (22-30); Chloride 103 mmol/L (98-107); Estimated Glomerular Filt Rate > 60; Glucose 99 mg/dL (65-110); Potassium 3.9 mmol/L (3.4-5.0); Sodium 139 mmol/L (137-145)
[2022-08-03 16:52] LABS: Appearance Urine Clear (Clear); Bacteria Urine None Seen /hpf; Bilirubin Urine Negative (Negative); Blood Urine Negative (Negative); Color Urine Dark Yellow (Yellow); Glucose Urine UA Negative (Negative); Ketones Urine Negative (Negative); Leukocyte Esterase Ur Negative LEU/UL (Negative); Nitrate Urine Negative (Negative); Non Pathogenic Casts 0-2; Protein Urine Trace mg/dL (Negative); RBC Urine 0-2 /hpf (0-2); Specific Grav Ur 1.033 (1.001-1.035); Squamous Epithelial Cell Urine None seen /hpf (Few); WBC Urine 0-5 /hpf
[2022-08-03 17:02] LABS: Add Urine Microscopic? YES
== END 2022-08-03 16:06 | disposition home or self-care (01) ==
PROVIDERS: PCP Family Medicine; Visit Provider Nurse Practitioner Gerontology
DX: R10.9 Unspecified abdominal pain (principal); R35.0 Frequency of micturition
CPT/HCPCS: 36415; 74176; 80053; 81001; 85025

== ENCOUNTER 2022-08-12 16:50 | Outpatient (CLI) | payer MEDICARE, OTHER, SELFPAY ==
[2022-08-18 18:56] LABS: PSA, Free 0.03 ng/mL; PSA, Total 0.1 ng/mL (<=4.0)
== END 2022-08-12 16:51 | disposition home or self-care (01) ==
PROVIDERS: PCP Family Medicine; Visit Provider Physician Assistant
DX: R35.0 Frequency of micturition (principal); Z12.5 Encounter for screening for malignant neoplasm of prostate
CPT/HCPCS: 36415; 84153; 84154

== ENCOUNTER 2022-09-21 00:17 | Day surgery (SDC) | payer MEDICARE, OTHER, SELFPAY ==
[2022-09-16 14:16] VITALS: BMI 40.5
--- NOTE | 2022-09-20 12:40 | PM.HPGS ---
History of Present Illness History of Present Illness Consent: Risks, benefits, and alternatives have been discussed and questions answered. Patient agrees to proceed with procedure. Chief complaint: dysphagia Narrative: Matthew Alcantar is a 67 year old male who has had increasing difficulty with swallowing also acid reflux symptoms for the past year. He has been on pantoprazole 40 mg per day. Review of Systems Review of Systems: All systems reviewed & are unremarkable except as noted in HPI and below PMFSH Past Medical History Medical History Allergic rhinitis Colon cancer screening Degenerative joint disease of left hip Diverticulosis of large intestine without hemorrhage DJD (degenerative joint disease) of knee Erectile dysfunction associated with vasculopathy Essential (primary) hypertension Generalized anxiety disorder Idiopathic chronic gout, unspecified site, without tophus (tophi) Knee joint effusion Knee pain, acute Left knee DJD Lumbar radicular syndrome Lumbar spondylosis MDD (major depressive disorder), recurrent episode, moderate Mixed hyperlipidemia Morbid (severe) obesity due to excess calories Obstructive sleep apnea (adult) (pediatric) Prediabetes Restless legs syndrome Right knee DJD Rotator cuff tear, left Rupture of right rotator cuff Trigger finger of right thumb Varicose veins of both lower extremities Varicose veins of right lower extremity with pain Surgical History Surgical History History of repair of right rotator cuff Family History Family History Father Hypertension Cerebrovascular accident, Onset Age: 70 Family history of diabetes mellitus in first degree relative Patient's father is Mother Hypertension Cerebrovascular accident, Onset Age: 79 Family history of diabetes mellitus in first degree relative Patient's mother is Sibling Family history of diabetes mellitus in first degree relative Other Family history of arthritis Social History Social History Social History: Years smoked: 15 Smoking status: Former smoker Tobacco type: cigarettes Second hand tobacco smoke exposure: No Smoking end date: 04/10/89 Additional smoking assessment comments: STATES 1PK/WEEK/37YRS Alcohol intake: never Alcohol use details: Alcoholism Substance use: never Substance use type: does not use Living arrangements: with family Occupation/Education: occupation 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 [employer] Gender identity (if verbalized by the patient): Male Sexual Orientation (if Verbalized by the Patient): Straight or Heterosexual Spiritual care concerns: No Agree to blood products: Yes Meds Home Medications and Allergies Home Medications Medication Instructions Recorded Confirmed Type buspirone 15 mg tablet 15 mg PO TID #180 tabs 09/14/22 09/16/22 Rx amlodipine 10 mg tablet 10 mg PO DAILY 09/16/22 09/16/22 History celecoxib 100 mg capsule 100 mg PO BID PRN Pain 09/16/22 09/16/22 History cyclobenzaprine 5 mg tablet 5 mg PO TID PRN muscle spasms 09/16/22 09/16/22 History escitalopram oxalate 10 mg tablet 20 mg PO HS 09/16/22 09/16/22 History finasteride 5 mg tablet 5 mg PO HS 09/16/22 09/16/22 History furosemide 20 mg tablet 40 mg PO DAILY 09/16/22 09/16/22 History pantoprazole 40 mg tablet,delayed 40 mg PO DAILY 09/16/22 09/16/22 History release ropinirole 0.5 mg tablet 1 mg PO BID 09/16/22 09/16/22 History tamsulosin 0.4 mg capsule 0.4 mg PO HS 09/16/22 09/16/22 History telmisartan 40 mg tablet 40 mg PO HS 09/16/22 09/16/22 History tramadol 50 mg tablet 50 mg PO Q8H PRN Pain, Moderate 09/19/22 Rx #30 tabs trazodone 100 mg tablet See Rx Instructions
--- NOTE | 2022-09-22 06:36 | SUR.PREOP ---
Paper documentation exist due to [employer] system being down from 09/21/22 0030 till 1930.
== END 2022-09-21 09:30 ==
PROVIDERS: PCP Family Medicine; Visit Provider Internal Medicine Gastroenterology
PROC: 0DJ08ZZ Inspection of Upper Intestinal Tract, Via Natural or Artificial Opening Endoscopic (ICD-10-PCS; CPT 43235; principal; 2022-09-21 08:00)
DX: K22.70 Barrett's esophagus without dysplasia (principal); R13.10 Dysphagia, unspecified; K21.9 Gastro-esophageal reflux disease without esophagitis; I10 Essential (primary) hypertension; F41.1 Generalized anxiety disorder; M1A.00X0 Idiopathic chronic gout, unspecified site, without tophus (tophi); E78.2 Mixed hyperlipidemia; F33.1 Major depressive disorder, recurrent, moderate; G47.33 Obstructive sleep apnea (adult) (pediatric); G25.81 Restless legs syndrome; R73.03 Prediabetes; E66.01 Morbid (severe) obesity due to excess calories; Z68.41 Body mass index [BMI] 40.0-44.9, adult; Z87.891 Personal history of nicotine dependence
CPT/HCPCS: 43239; 88305; J2704; J7120

== ENCOUNTER 2022-12-09 09:00 | Outpatient (CLI) | payer MEDICARE, OTHER, SELFPAY ==
--- NOTE | ~2022-12-09 | NM_ITS ---
EXAMINATION: NM madison stress w perfusion DATE: 12/09/2022 10:58 INDICATION: Chest pain with exertion TECHNIQUE: Rest images were obtained following intravenous administration of 10.5 mCi Tc99m tetrofosm in (Myoview). The patient was infused intravenously with Lexiscan (Regadenoson). Then, 34.6 mCi Tc99m tetrofosmin (Myoview) was administered intravenously, and stress images were obtained. Data was shaheen nstructed into short axis and horizontal and vertical long axis SPECT images. Gated SPECT images were also obtained. COMPARISON: None. FINDINGS: There is no definite reversible or fixed perfusion abnormality to suggest ischemia or infar ction. There is normal left ventricular chamber size, wall motion and ejection fraction. Left ventr icular ejection fraction measures 61%. IMPRESSION: 1. Normal myocardial perfusion at rest and during stress. 2. Left ventricular ejection fraction measuring 61%. Reviewed, dictated and finalized at location A.
--- NOTE | 2022-12-09 10:03 | EST_ITS ---
Patient Info Name: Matthew Alcantar Age: 67 years : 1955 Gender: Male Ht: 69 in Wt: 274 lbs BSA: 2.52 m2 HR: 63 bpm BP: 126 / 69 mmHg Heart Rhythm: Sinus Rhythm Exam Date: 12/09/2022 10:11 AM Exam Location: [facility] Stress Patient Status: Outpatient Admit Date: 12/09/2022 Staff Ordering Physician: Deborah Gramajo MD Attending Provider: Deborah Gramajo MD Exercise Technologist: Luli Scales CT Exercise Physician: Moo Jj DO Exam Type: CA stress madison w NM Study Info Indications Z01.810 - Encounter for preprocedural cardiovascular examination R94.31 - Abnormal electrocardiogram ECG EKG A regadenoson stress test was performed. Summary 1. 1. Negative lexiscan stress test for ischemic ST changes by ECG criteria. 2. 2. Stable hemodynamics throughout the test. 3. 3. Nuclear scan to follow and will be reported separately. Please correlate with it. 4. 4. Patient informed of the above results. Protocol: Lexiscan Stress ECG Details Stage: REST Duration (min): 0 min : 59 sec HR (bpm): 62 SBP (mmHg): 126 DBP (mmHg): 69 Stage: REST Duration (min): 7 min : 56 sec HR (bpm): 60 SBP (mmHg): 126 DBP (mmHg): 69 Stage: STAGE 1 Duration (min): 0 min : 59 sec HR (bpm): 76 SBP (mmHg): 123 DBP (mmHg): 68 Stage: RECOVERY Duration (min): 1 min : 0 sec HR (bpm): 77 SBP (mmHg): 123 DBP (mmHg): 68 Stage: RECOVERY Duration (min): 2 min : 0 sec HR (bpm): 73 SBP (mmHg): 123 DBP (mmHg): 68 Stage: RECOVERY Duration (min): 3 min : 0 sec HR (bpm): 62 SBP (mmHg): 117 DBP (mmHg): 61 Stage: RECOVERY Duration (min): 3 min : 38 sec HR (bpm): 64 SBP (mmHg): 117 DBP (mmHg): 61 Rest HR: 60 bpm Peak HR: 83 bpm Rest Sys BP: 126 mmHg Peak Sys BP: 123 mmHg Max Pred HR: 151 bpm % Max Pred HR: 55 % Target HR: 128 bpm Max RPP: 10,209 bpm*mmHg Termination Reason: Completed protocol Cardiac Symptoms: Shortness of breath Total Time: 1 min : 0 sec Rest Ochoa BP: 69 mmHg Peak Ochoa BP: 68 mmHg Total Dose: 0.4 mg Resting ECG Sinus rhythm. Stress ECG No ST changes. Arrhythmias None. Report Signatures
== END 2022-12-09 09:01 | disposition home or self-care (01) ==
PROVIDERS: PCP Family Medicine; Visit Provider Family Medicine
DX: R94.31 Abnormal electrocardiogram [ECG] [EKG] (principal)
CPT/HCPCS: 78452; 93017; A9502; J2785

== ENCOUNTER 2022-12-15 08:14 | Outpatient (CLI) | payer MEDICARE, OTHER, SELFPAY ==
--- NOTE | 2023-01-09 10:52 | WPDSLEEPSTUD ---
Sleep Study Date of Study: 12/15/22 Ordering Provider: Perla Brown, [employer] MANAGER Interpreting Physician: Mary العلي DO Sleep Study Type: Split Polysomnogram Height: 1.75 m Weight: 124.284 kg Body Mass Index: 40.4 Neck Circumference (inches): 19 [place]: 18 Reason for Sleep Study Difficulty sleeping Sleep History The patient is a 67-year-old male with hypertension, a rectal dysfunction, anxiety, arthritis, depression, hyperlipidemia, morbid obesity, prediabetes, restless legs syndrome, varicose veins of bilateral lower extremities, alcoholism and history of tobacco abuse that had a sleep study ordered by his primary care for evaluation of sleep apnea. The patient constantly awakens from sleep short of breath. He constantly awakens at night with heartburn, belching or cough. He constantly snores loudly enough that others complain. He constantly has trouble sleeping when he has a cold. He frequently wakes up gasping for air throughout the night. He constantly has breathing problems at night observed by himself or others. He frequently sweats excessively at night. He occasionally has heart palpitations or irregular heartbeats during the night. He occasionally falls asleep during the day but rarely falls asleep while driving. He frequently experiences loss of muscle tone when extremely emotional. He frequently has trouble at school or work due to sleepiness. He frequently feels unable to move while waking up or falling asleep. He frequently experiences vivid dreamlike scenes upon awakening or falling asleep. He frequently feels afraid of going to sleep. He constantly has nightmares and frequently remembers his dreams. He frequently has thoughts racing through his mind. He constantly feels sad, depressed and anxious. He constantly has muscular tension. He constantly notices parts of his body jerk. He constantly kicks during the night. He frequently has crawling and aching feelings in his legs and constantly has leg pain during the night. He denies grinding his teeth during sleep and denies awakening with morning jaw pain. He is constantly bothered by pain during the day and frequently awakened by pain during the night. He frequently wakes up feeling stiff in the morning. He frequently wakes up with sore or achy muscles. He frequently wakes up with pain in the neck, spine or other joints. He goes to bed at 8:30 p.m. on weekdays and at 9:30 p.m. on the weekends. It takes him over 2 hours to fall asleep. He wakes up 5-6 times throughout the night for unknown reasons but is able to fall back asleep within 15-20 minutes. He wakes up at 4:30 a.m. on both weekdays and weekends. He typically gets 3-4 hours of sleep per night. He will stay in bed for a few minutes after waking up in the morning. He currently lives with his . He denies consuming any caffeinated beverages within 2 hours of bedtime. He denies engaging in physical exercise before bedtime. He will read and watch television before falling asleep. He will take naps in the afternoon or the evening they are not refreshing. He drinks 2-3 cups of caffeinated beverage per day. He consumes 12 cans of an alcoholic beverage per day. He denies tobacco and recreational drug use. FORMERLY [facility] Past Medical History Medical History Allergic rhinitis Colon cancer screening Degenerative joint disease of left hip Diverticulosis of large intestine without hemorrhage DJD (degenerative joint disease) of knee Erectile dysfunction associated with vasculopathy Essential (primary) hypertension Generalized anxiety disorder Idiopathic chronic gout, unspecified site, without tophus (tophi) Knee joint effusion Knee pain, acute Left knee DJD Lumbar radicular syndrome Lumbar spondylosis MDD (major depressive disorder), recurrent episode, moderate Mixed hyperlipidemia Morbid (severe) obesity due to excess calories Obstructive sleep ap
[2023-01-09 11:00] VITALS: BMI 40.4
== END 2022-12-16 07:36 | disposition home or self-care (01) ==
LOC: ANHCSM 08:18
PROVIDERS: PCP Family Medicine; Visit Provider Nurse Practitioner Gerontology
DX: G47.30 Sleep apnea, unspecified (principal); G47.33 Obstructive sleep apnea (adult) (pediatric); Z72.821 Inadequate sleep hygiene
CPT/HCPCS: 95811

== ENCOUNTER 2023-02-08 09:40 | Outpatient (CLI) | payer MEDICARE, OTHER, SELFPAY ==
[2023-02-08 10:28] LABS: Alanine Aminotransferase 23 U/L (6-50); Albumin Level 3.8 g/dL (3.5-5.1); Alkaline Phosphatase 75 U/L (38-126); Anion Gap 8 mmol/L (8-16); Aspartate Amino Transferase 25 U/L (17-59); Bilirubin,Total 0.5 mg/dL (0.2-1.3); Blood Urea Nitrogen 14 mg/dL (9-20); Carbon Dioxide 28 mmol/L (22-30); Chloride 102 mmol/L (98-107); Cholesterol 205 mg/dL (0-200); Estimated Glomerular Filt Rate > 60; Glucose 135 mg/dL (65-110); HDL Direct 43 mg/dL; Potassium 3.9 mmol/L (3.4-5.0); Sodium 138 mmol/L (137-145); Triglycerides 174 mg/dL (<150)
[2023-02-08 10:35] LABS: Hemoglobin A1C 6.1 % (<5.7)
[2023-02-08 10:47] LABS: LDL Cholesterol Direct 110 mg/dL
== END 2023-02-08 09:41 | disposition home or self-care (01) ==
PROVIDERS: PCP Family Medicine; Visit Provider Physician Assistant
DX: E78.5 Hyperlipidemia, unspecified (principal); I10 Essential (primary) hypertension; R73.03 Prediabetes; N52.9 Male erectile dysfunction, unspecified
CPT/HCPCS: 36415; 80053; 80061; 83036

== ENCOUNTER 2023-04-12 09:10 | Outpatient (CLI) | payer MEDICARE, OTHER, SELFPAY ==
--- NOTE | 2023-04-12 10:15 | NEURO_ITS ---
Impression: # Borderline diabetic complains of numbness of hands. # Bilateral Carpal Tunnel Syndrome, right more than left. # No ulnar neuropathy. # Normal needle/EMG exam without any acute or chronic changes except mild tremor. Nerve Conduction Studies Anti Sensory Summary Table Stim Site NR Peak (ms) P-T Amp (?V) Site1 Site2 Delta-P (ms) Dist (cm) Aamir (m/s) Left Median Anti Sensory (2-3nd Digit) Wrist 4.9 20.5 Wrist 2-3nd Digit 4.9 14.0 29 Wrist 5.8 20.0 Wrist 2-3nd Digit 4.9 14.0 29 Right Median Anti Sensory (2-3nd Digit) Wrist 6.8 22.4 Wrist 2-3nd Digit 6.8 14.0 21 Wrist 6.3 25.2 Wrist 2-3nd Digit 6.8 14.0 21 Left Radial Anti Sensory (Base 1st Digit) Wrist 1.9 24.3 Wrist Base 1st Digit 1.9 0.0 Right Radial Anti Sensory (Base 1st Digit) Wrist 2.2 29.9 Wrist Base 1st Digit 2.2 0.0 Left Ulnar Anti Sensory (5th Digit) Wrist 2.5 39.4 Wrist 5th Digit 2.5 14.0 56 Right Ulnar Anti Sensory (5th Digit) Wrist 2.7 22.1 Wrist 5th Digit 2.7 14.0 52 Motor Summary Table Stim Site NR Onset (ms) O-P Amp (mV) Site1 Site2 Delta-0 (ms) Dist (cm) Aamir (m/s) Left Median Motor (Abd Poll Brev) Wrist 5.9 0.8 Elbow Wrist 4.6 28.0 61 Elbow 10.5 0.5 Right Median Motor (Abd Poll Brev) Wrist 6.3 1.3 Elbow Wrist 4.8 26.0 54 Elbow 11.1 1.3 Left Ulnar Motor (Abd Dig Minimi) Wrist 2.4 6.5 A Elbow Wrist 5.3 30.0 57 A Elbow 7.7 5.4 Right Ulnar Motor (Abd Dig Minimi) Wrist 2.5 7.5 A Elbow Wrist 4.8 27.0 56 A Elbow 7.3 6.5 F Wave Studies NR F-Lat (ms) L-R F-Lat (ms) Left Median (Mrkrs) (Abd Poll Brev) 29.99 0.00 Right Median (Mrkrs) (Abd Poll Brev) 29.99 0.00 Left Ulnar (Mrkrs) (Abd Dig Min) 27.97 0.13 Right Ulnar (Mrkrs) (Abd Dig Min) 27.84 0.13 EMG Side Muscle Nerve Root Ins Act Fibs Amp Dur Recrt Comment Right 1stDorInt Ulnar C8-T1 Nml Nml Nml Nml Nml Right Ext Indicis Radial (Post Int) C7-8 Nml Nml Nml Nml Nml Right Ext Digitorum Radial (Post Int) C7-8 Nml Nml Nml Nml Nml Right BrachioRad Radial C5-6 Nml Nml Nml Nml Nml Right PronatorTeres Median C6-7 Nml Nml Nml Nml Nml Right Abd Poll Brev Median C8-T1 Nml Nml Nml Nml Nml Left 1stDorInt Ulnar C8-T1 Nml Nml Nml Nml Nml Left Ext Indicis Radial (Post Int) C7-8 Nml Nml Nml Nml Nml Left Ext Digitorum Radial (Post Int) C7-8 Nml Nml Nml Nml Nml Left BrachioRad Radial C5-6 Nml Nml Nml Nml Nml Left PronatorTeres Median C6-7 Nml Nml Nml Nml Nml Left Abd Poll Brev Median C8-T1 Nml Nml Nml Nml Nml Right ABD Dig Min Ulnar C8-T1 Nml Nml Nml Nml Nml MTDD
== END 2023-04-12 09:11 | disposition home or self-care (01) ==
PROVIDERS: PCP Family Medicine; Visit Provider Nurse Practitioner Family
DX: G56.03 Carpal tunnel syndrome, bilateral upper limbs (principal)
CPT/HCPCS: 95886; 95911

== ENCOUNTER 2023-05-09 08:20 | Outpatient (CLI) | payer MEDICARE, OTHER, SELFPAY ==
[2023-05-09 09:07] LABS: Anion Gap 6 mmol/L (8-16); Blood Urea Nitrogen 14 mg/dL (9-20); Calcium 9.1 mg/dL (8.4-10.2); Carbon Dioxide 28 mmol/L (22-30); Chloride 105 mmol/L (98-107); Estimated Glomerular Filt Rate > 60; Glucose 135 mg/dL (65-110); Sodium 139 mmol/L (137-145)
== END 2023-05-09 08:21 | disposition home or self-care (01) ==
LOC: ANHSURGERY 08:26
PROVIDERS: Anesthesiology; PCP Family Medicine; Visit Provider Orthopaedic Surgery
DX: Z01.818 Encounter for other preprocedural examination (principal); I10 Essential (primary) hypertension
CPT/HCPCS: 36415; 80048; 80053

== ENCOUNTER 2023-05-09 09:02 | Outpatient (CLI) | payer MEDICARE, OTHER, SELFPAY ==
[2023-05-09 09:48] LABS: Alanine Aminotransferase 25 U/L (6-50); Albumin Level 4.1 g/dL (3.5-5.1); Alkaline Phosphatase 67 U/L (38-126); Anion Gap 7 mmol/L (8-16); Aspartate Amino Transferase 28 U/L (17-59); Bilirubin,Total 0.7 mg/dL (0.2-1.3); Blood Urea Nitrogen 15 mg/dL (9-20); Calcium 9.1 mg/dL (8.4-10.2); Carbon Dioxide 28 mmol/L (22-30); Chloride 104 mmol/L (98-107); Estimated Glomerular Filt Rate > 60; Glucose 127 mg/dL (65-110); Potassium 3.8 mmol/L (3.4-5.0); Sodium 139 mmol/L (137-145)
== END 2023-05-09 09:03 | disposition home or self-care (01) ==
PROVIDERS: PCP Family Medicine; Visit Provider Family Medicine
DX: I10 Essential (primary) hypertension (principal)
CPT/HCPCS: 36415; 80053

== ENCOUNTER 2023-05-12 01:06 | Day surgery (SDC) | payer MEDICARE, OTHER, SELFPAY ==
--- NOTE | 2023-05-08 12:09 | PC.NURSE ---
Report to the Outpatient Waiting Room, entrance under the green pavilion located off [facility], at time __0800 on date _05/12/23 . Planned Procedure Time: __1000 . Time changes happen often and if your time is changed the preop area will call you the afternoon before. - You and your visitor will be asked to self-screen and do not enter if you have any COVID symptoms. - A mask is optional within the hospital at this time. Patients may have clear liquids (water, carbonated beverages, clear teas, apple juice) until 3 hours prior to surgery (0700)with a maximum of 20 ounces. - No food from midnight until time of surgery - Infants may have breast milk until 4 hours before surgery, infant formula 6 hours prior to surgery. - Children will be allowed to drink immediately following surgery. If applicable, please bring a bottle or sippy cup to assist with drinking. Juice, water, soda, and popsicles are readily available. For infants on formula, please bring formula the day of surgery. Pacifiers are allowed. Take the following medications with a SIP of water the morning of surgery: __BUPROPION,BUSPIRONE DO NOT STOP ANY OF YOUR OTHER PRESCRIPTION MEDICATIONS PRIOR TO SURGERY ?EXCEPT THE FOLLOWING Medications to discontinue per physician NONE Please no make-up, nail pashto, hairspray, perfume, deodorant, or body powder the day of surgery. No jewelry (including any body piercings) or valuables the day of surgery, leave them at home. Please take a shower or bath the night before, or the morning of, surgery with an antibacterial soap. Wear comfortable, loose fitting clothing. Children are encouraged to wear pajamas. - Jewelry must be removed prior to entering the operating room. Rings and piercings that are not removed may be cut off. - The hospital will not accept responsibility for valuables. - Please leave all valuables, including medications, at home the day of surgery. If you are going home after surgery, a licensed transport truck driver must drive you home. - NO public transportation without another adult if you receive anesthesia. - We recommend that an adult stay with you for 24 hours following discharge. - We also recommend that you do not drive, make important decision, drink alcoholic beverages, or take any drugs that were not prescribed by your health care provider for at least 24 hours after your discharge time. Follow any additional instructions given to you from your surgeon. If you or anyone in your household have experienced Covid symptoms in the past week, please notify your surgeon or the nurse liaison at the phone number below for possible testing. Telephone instructions given to ___PATIENT and asked if any additional questions and then verbalized understanding. Patient advised to call surgeon office or pre surgery nurse liaison [phone] if any additional questions.
[2023-05-08 12:17] VITALS: BMI 39.1
[2023-05-12] VITALS (7 sets, daily range): BP systolic 117–137; BP diastolic 57–73; PULSE 48–65; RESP 14–17; TEMP 36.6–36.8; O2SAT 93–98
[2023-05-12] MEDS: CELECOXIB 200 MG CAPSULE PO (07:00)
[2023-05-12] MEDS: ACETAMINOPHEN 500 MG TABLET 1000 MG PO (07:00)
[2023-05-12] MEDS: LACTATED RINGERS 1,000 ML 30 ML IV CONT (07:00)
--- NOTE | 2023-05-12 07:13 | WPDHPUPDATE1 ---
History and Physical Update Update Date/Time: 05/12/23 07:13 History and Physical has been reviewed, including an updated exam of the patient. There are NO changes in the patient's condition. Risks, benefits, and alternatives have been discussed and questions answered. Patient agrees to proceed with procedure.
--- NOTE | 2023-05-12 08:32 | WPDANESEPPF ---
Anes - Initial Pre Proc Eval Procedure: Operation Date: 05/12/23 08:30 Proposed Procedures p Right Carpal Tunnel Release - Thad Rowan MD Date/Time: 05/12/23 08:32 Surgeon: Thad Rowan MD Pre Op Diagnosis: Rt Carpal Tunnel Syndrome Patient Data Age: 67 Gender: M Height: 1.75 m Weight: 123 kg Last Vital Signs Temp 98 F 05/12/23 07:26 Pulse 62 05/12/23 07:26 Resp 14 05/12/23 07:26 BP 137/57 L 05/12/23 07:26 Pulse Ox 97 05/12/23 07:26 O2 Del Method Room Air 05/12/23 07:26 Allergies Allergy/AdvReac Type Severity Reaction Status Date / Time CARMINE Inhibitors AdvReac Mild coughing Verified 05/08/23 11:45 atorvastatin AdvReac Mild Joint Pain Verified 05/08/23 11:45 isosorbide AdvReac Mild Cough Verified 05/08/23 11:45 liraglutide AdvReac Mild Cough Verified 05/08/23 11:45 losartan AdvReac Mild Cough Verified 05/08/23 11:45 tamsulosin AdvReac Mild Dry Mouth Verified 05/08/23 11:45 Home Medications Medication Instructions Recorded Confirmed Type furosemide 40 mg tablet (Lasix) 40 mg PO QAM #30 tabs 10/05/22 05/08/23 Rx buspirone 15 mg tablet See Rx Instructions .Route 12/02/22 05/08/23 Rx .COMPLEX #270 tabs pantoprazole 40 mg tablet,delayed 40 mg PO DAILY #90 tabs 12/02/22 05/08/23 Rx release cyclobenzaprine 5 mg tablet 5 mg PO TID PRN muscle spasms #90 01/31/23 05/08/23 Rx tabs finasteride 5 mg tablet 5 mg PO HS #90 tabs 02/17/23 05/08/23 Rx tamsulosin 0.4 mg capsule See Rx Instructions .Route 03/08/23 05/08/23 Rx .COMPLEX #90 caps tramadol 50 mg tablet 50 mg PO Q8H PRN Pain, Moderate 03/08/23 05/08/23 Rx #30 tabs zolpidem 10 mg tablet 10 mg PO QHS #30 tabs 04/05/23 05/08/23 Rx bupropion HCl 150 mg tablet,12 hr See Rx Instructions .Route 04/20/23 05/08/23 Rx sustained-release .COMPLEX #60 tabs chlorhexidine gluconate 4 % 1 applic topical DAILY #237 mL 05/05/23 05/08/23 Rx topical liquid (Hibiclens) acetaminophen 500 mg capsule 500 mg PO Q6H PRN Pain 05/08/23 05/08/23 History amlodipine 10 mg tablet 10 mg PO HS 05/08/23 05/08/23 History ropinirole 0.5 mg tablet See Rx Instructions .Route 05/08/23 05/08/23 History .COMPLEX RLS telmisartan 40 mg tablet 80 mg PO DAILY 05/08/23 05/08/23 History hydrocodone 5 mg-acetaminophen 325 1 tablet PO BID PRN pain #20 tabs 05/12/23 Rx mg tablet Patient hx anesthesia problems: none Family hx anesthesia problems: none Results Review: All pre-operative results and documents have been reviewed as part of the pre-operative evaluation. 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 Essential (primary) hypertension Generalized anxiety disorder Idiopathic chronic gout, unspecified site, without tophus (tophi) Knee joint effusion Knee pain, acute Left knee DJD Left wrist pain Lumbar radicular syndrome Lumbar spondylosis MDD (major depressive disorder), recurrent episode, moderate Mixed hyperlipidemia Morbid (severe) obesity due to excess calories Obstructive sleep apnea (adult) (pediatric) Prediabetes Restless legs syndrome Right knee DJD Right wrist pain Rotator cuff tear, left Rupture of right rotator cuff Trigger finger of right thumb Varicose veins of both lower extremities Varicose veins of right lower extremity with pain Surgical History Surgical History History of repair of right rotator cuff Family History Family History Father Hypertension Cerebrovascular accident, Onset Age: 68 Family history of diabetes mellitus in first degree relativ
[2023-05-12] MEDS: ceFAZolin 3 GM/D5W 100 ML 100 ML IVPB (08:39)
[2023-05-12] MEDS: BUPivacaine HCL 0.5% 10 ML AMP INFILTRATE (08:59)
--- NOTE | 2023-05-12 09:26 | W.PM.PROC2 ---
Procedure Note - Detailed Date of Procedure 05/12/23 Pre-op Diagnosis Rt Carpal Tunnel Syndrome Post-op Diagnosis Same Procedure Performed RIGHT CTR Surgeon Thad Rowan MD Anesthesia General Description of Procedure THE RIGHT UPPER EXTREMITY WAS PREPPED AND DRAPED IN THE STERILE FASHION. THE CARPAL TUNNEL WAS MARKED FROM THE FLEXED RING FINGER. THE TOURNIQUET WAS INFLATED. THE INCISION WAS MADE AT THE MID PALM DOWN THROUGH THE SUBCUTANEOUS TISSUES. THE PALMAR FASCIA WAS IDENTIFIED. AN INCISION WAS MADE THROUGH THE PALMAR FASCIA UNTIL THE CARPAL TUNNEL WAS ENTERED. A MOSQUITO HEMOSTAT WAS USED TO PROTECT THE MEDIAN NERVE WHILE THE INCISION TO THE PALMAR FASCIA WAS COMPLETE PROXIMALLY AND DISTALLY TO THE CARDINAL LINE. NEXT, THE TRANSVERSE CARPAL LIGAMENT WAS IDENTIFIED. A FREER ELEVATOR WAS USED TO SEPARATE THE NERVE FROM THE LIGAMENT. A METZENBAUM SCISSORS WAS THEN USED TO INCISE THE TRANSVERSE CARPAL LIGAMENT UNTIL THERE WAS A COMPLETE RELEASE OF THE CARPAL TUNNEL. THE MEDIAN NERVE WAS INTACT. THE TOURNIQUET WAS DEFLATED. THE BLEEDERS WERE CAUTERIZED. THE WOUND WAS WASHED. THE SKIN WAS APPROXIMATED WITH 4-0 NYLON SUTURE. STERILE DRESSING WAS APPLIED. PATIENT WAS EXTUBATED AND SENT TO THE RECOVERY ROOM. Estimated Blood Loss 5 Complications No immediate complications Condition Stable Disposition PACU
== END 2023-05-12 10:50 | disposition home or self-care (01) ==
PROVIDERS: PCP Family Medicine; Visit Provider Orthopaedic Surgery
PROC: (CPT 64721; principal; 2023-05-12 08:30)
DX: G56.01 Carpal tunnel syndrome, right upper limb (principal); I10 Essential (primary) hypertension; F41.9 Anxiety disorder, unspecified; F33.9 Major depressive disorder, recurrent, unspecified; E78.2 Mixed hyperlipidemia; G47.33 Obstructive sleep apnea (adult) (pediatric); R73.03 Prediabetes; G25.81 Restless legs syndrome; K57.30 Diverticulosis of large intestine without perforation or abscess without bleeding; I83.93 Asymptomatic varicose veins of bilateral lower extremities; E66.01 Morbid (severe) obesity due to excess calories; Z68.41 Body mass index [BMI] 40.0-44.9, adult; Z79.891 Long term (current) use of opiate analgesic; Z98.890 Other specified postprocedural states; Z87.891 Personal history of nicotine dependence; Z82.49 Family history of ischemic heart disease and other diseases of the circulatory system
CPT/HCPCS: 64721; A9270; J0690; J1100; J2590; J2704; J3010; J7120

== ENCOUNTER 2023-06-07 00:12 | Day surgery (SDC) | payer MEDICARE, OTHER, SELFPAY ==
--- NOTE | 2023-05-31 12:04 | PC.NURSE ---
Report to the Outpatient Waiting Room, entrance under the green pavilion located off [facility], at time __1130 on date _06/07/23 . Planned Procedure Time: _1330 . Time changes happen often and if your time is changed the preop area will call you the afternoon before. - You and your visitor will be asked to self-screen and do not enter if you have any COVID symptoms. - A mask is optional within the hospital at this time. Patients may have clear liquids (water, carbonated beverages, clear teas, apple juice) until 3 hours prior to surgery ( 10:30)with a maximum of 20 ounces. - No food from midnight until time of surgery - Infants may have breast milk until 4 hours before surgery, formula 6 hours prior to surgery. - Children will be allowed to drink immediately following surgery. If applicable, please bring a bottle or sippy cup to assist with drinking. Juice, water, soda, and popsicles are readily available. For infants on formula, please bring formula the day of surgery. Pacifiers are allowed. Take the following medications with a SIP of water the morning of surgery: __BUPROPION,BUSPIRONE, EYE DROP DO NOT STOP ANY OF YOUR OTHER PRESCRIPTION MEDICATIONS PRIOR TO SURGERY ?EXCEPT THE FOLLOWING Medications to discontinue per physician ____NONE Please no make-up, nail [place], hairspray, perfume, deodorant, or body powder the day of surgery. No jewelry (including any body piercings) or valuables the day of surgery, leave them at home. Please take a shower or bath the night before, or the morning of, surgery with an antibacterial soap. Wear comfortable, loose fitting clothing. Children are encouraged to wear pajamas. - Jewelry must be removed prior to entering the operating room. Rings and piercings that are not removed may be cut off. - The hospital will not accept responsibility for valuables. - Please leave all valuables, including medications, at home the day of surgery. If you are going home after surgery, a licensed local delivery driver must drive you home. - NO public transportation without another adult if you receive anesthesia. - We recommend that an adult stay with you for 24 hours following discharge. - We also recommend that you do not drive, make important decision, drink alcoholic beverages, or take any drugs that were not prescribed by your health care provider for at least 24 hours after your discharge time. Follow any additional instructions given to you from your surgeon. If you or anyone in your household have experienced Covid symptoms in the past week, please notify your surgeon or the nurse liaison at the phone number below for possible testing. Telephone instructions given to __PATIENT and asked if any additional questions and then verbalized understanding. Patient advised to call surgeon office or pre surgery nurse liaison [phone] if any additional questions.
[2023-05-31 12:14] VITALS: BMI 25.7
--- NOTE | 2023-06-07 07:17 | WPDHPUPDATE1 ---
History and Physical Update Update Date/Time: 06/07/23 07:17 History and Physical has been reviewed, including an updated exam of the patient. There are NO changes in the patient's condition. Risks, benefits, and alternatives have been discussed and questions answered. Patient agrees to proceed with procedure.
[2023-06-07] MEDS: ACETAMINOPHEN 500 MG TABLET 1000 MG PO (09:10)
[2023-06-07] MEDS: CELECOXIB 200 MG CAPSULE PO (09:10)
[2023-06-07 09:20] VITALS: BP 155/78; PULSE 69; RESP 16; TEMP 36.7; O2SAT 98
[2023-06-07] MEDS: LACTATED RINGERS 1,000 ML 30 ML IV CONT (09:20)
--- NOTE | 2023-06-07 10:05 | WPDANESEPPF ---
Anes - Initial Pre Proc Eval Procedure: Operation Date: 06/07/23 10:30 Proposed Procedures p Left Carpal Tunnel Release - Thad Rowan MD Date/Time: 06/07/23 10:05 Surgeon: Thad Rowan MD Pre Op Diagnosis: left carpal tunnel syndrome Patient Data Age: 68 Gender: M Height: 1.75 m Weight: 122.6 kg Last Vital Signs Temp 36.7 C 06/07/23 09:20 Pulse 69 06/07/23 09:20 Resp 16 06/07/23 09:20 BP 155/78 H 06/07/23 09:20 Pulse Ox 98 06/07/23 09:20 O2 Del Method Room Air 06/07/23 09:20 Allergies Allergy/AdvReac Type Severity Reaction Status Date / Time CARMINE Inhibitors AdvReac Mild coughing Verified 06/07/23 09:11 atorvastatin AdvReac Mild Joint Pain Verified 06/07/23 09:11 isosorbide AdvReac Mild Cough Verified 06/07/23 09:11 liraglutide AdvReac Mild Cough Verified 06/07/23 09:11 losartan AdvReac Mild Cough Verified 06/07/23 09:11 tamsulosin AdvReac Mild Dry Mouth Verified 06/07/23 09:11 metformin AdvReac Diarrhea Verified 06/07/23 09:11 Home Medications Medication Instructions Recorded Confirmed Type buspirone 15 mg tablet See Rx Instructions .Route 12/02/22 06/07/23 Rx .COMPLEX #270 tabs pantoprazole 40 mg tablet,delayed 40 mg PO DAILY #90 tabs 12/02/22 06/07/23 Rx release finasteride 5 mg tablet 5 mg PO HS #90 tabs 02/17/23 06/07/23 Rx tramadol 50 mg tablet 50 mg PO Q8H PRN Pain, Moderate 03/08/23 06/07/23 Rx #30 tabs zolpidem 10 mg tablet 10 mg PO QHS #30 tabs 04/05/23 06/07/23 Rx bupropion HCl 150 mg tablet,12 hr See Rx Instructions .Route 04/20/23 06/07/23 Rx sustained-release .COMPLEX #60 tabs acetaminophen 500 mg capsule 500 mg PO Q6H PRN Pain 05/08/23 06/07/23 History amlodipine 10 mg tablet 10 mg PO HS 05/08/23 06/07/23 History ropinirole 0.5 mg tablet See Rx Instructions .Route 05/08/23 06/07/23 History .COMPLEX RLS hydrocodone 5 mg-acetaminophen 325 1 tablet PO BID PRN pain #20 tabs 05/12/23 06/07/23 Rx mg tablet tadalafil 5 mg tablet (Cialis) 5 mg PO DAILY #30 tabs 05/23/23 06/01/23 Rx tobramycin 0.3 % eye drops 2 drp EACH EYE Q4H #5 mL 05/23/23 06/07/23 Rx furosemide 20 mg tablet 20 mg PO QAM #90 tabs 05/28/23 06/07/23 Rx chlorhexidine gluconate 4 % 1 applic topical DAILY #237 mL 06/01/23 06/07/23 Rx topical liquid (Hibiclens) telmisartan 40 mg tablet 80 mg PO DAILY #90 tabs 06/06/23 06/07/23 Rx Patient hx anesthesia problems: none Family hx anesthesia problems: none Results Review: All pre-operative results and documents have been reviewed as part of the pre-operative evaluation. 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 Essential (primary) hypertension Generalized anxiety disorder Idiopathic chronic gout, unspecified site, without tophus (tophi) Knee joint effusion Knee pain, acute Left knee DJD Left wrist pain Lumbar radicular syndrome Lumbar spondylosis MDD (major depressive disorder), recurrent episode, moderate Mixed hyperlipidemia Morbid (severe) obesity due to excess calories Obstructive sleep apnea (adult) (pediatric) Prediabetes Restless legs syndrome Right knee DJD Right wrist pain Rotator cuff tear, left Rupture of right rotator cuff Trigger finger of right thumb Varicose veins of both lower extremities Varicose veins of right lower extremity with pain Surgical History Surgical History History of repair of right rotator cuff Family History Family History Father Hypertension Cerebrovascular accident, Onset Age: 68 Family history of diabetes mellitus in
[2023-06-07] MEDS: ceFAZolin 3 GM/D5W 100 ML 100 ML IVPB (10:22)
[2023-06-07] MEDS: BUPivacaine HCL 0.5% 10 ML AMP 20 ML INFILTRATE (10:40)
[2023-06-07 11:10] VITALS: BP 147/74; PULSE 56; RESP 16; O2SAT 100
--- NOTE | 2023-06-07 11:18 | W.PM.PROC2 ---
Procedure Note - Detailed Date of Procedure 06/07/23 Pre-op Diagnosis left carpal tunnel syndrome Post-op Diagnosis Same Procedure Performed LEFT CTR Surgeon Thad Rowan MD Anesthesia General Description of Procedure THE LEFT UPPER EXTREMITY WAS PREPPED AND DRAPED IN THE STERILE FASHION. THE CARPAL TUNNEL WAS MARKED FROM THE FLEXED RING FINGER. THE TORNEQUET WAS INFLATED. THE INCISION WAS MADE AT THE MID PALM DOWN THROUGH THE SUBCUTANEOUS TISSUES. THE PALMAR FASCIA WAS IDENTIFIED. AN INCISION WAS MADE THROUGH THE PALMAR FASCIA UNTIL THE CARPAL TUNNEL WAS ENTERED. A MOSQUITO HEMOSTAT WAS USED TO PROTECT THE MEDIAN NERVE WHILE THE INCISION TO THE PALMAR FASCIA WAS COMPLETE PROXIMALLY AND DISTALLY TO THE CARDINAL LINE. NEXT, THE TRANSVERSE CARPAL LIGAMENT WAS IDENTIFIED. A FREIER ELEVATOR WAS USED TO SEPARATE THE NERVE FROM THE LIGAMENT. A METZENBAUM SCISSORS WAS THEN USED TO INCISE THE TRANSVERSE CARPAL LIGAMENT UNTIL THERE WAS A COMPLETE RELEASE OF THE CARPAL TUNNEL. THE MEDIAN NERVE WAS INTACT. THE TOURNEQUET WAS DEFLATED. THE BLEEDERS WERE CAUTERIZED. THE WOUND WAS WASHED. THE SKIN WAS APPROXIMATED WITH 4-0 NYLON SUTURE. STERILE DRESSING WAS APPLIED. PATIENT WAS EXTUBATED AND SENT TO THE RECOVERY ROOM. Estimated Blood Loss 5 Complications No immediate complications Condition Stable Disposition PACU
[2023-06-07 11:40] VITALS: BP 147/63; PULSE 50; RESP 16
[2023-06-07 11:58] VITALS: BP 135/76; PULSE 58; RESP 16
== END 2023-06-07 12:00 | disposition home or self-care (01) ==
PROVIDERS: PCP Family Medicine; Visit Provider Orthopaedic Surgery
PROC: (CPT 64721; principal; 2023-06-07 10:30)
DX: G56.02 Carpal tunnel syndrome, left upper limb (principal); I10 Essential (primary) hypertension; F41.1 Generalized anxiety disorder; F33.1 Major depressive disorder, recurrent, moderate; E78.2 Mixed hyperlipidemia; G47.33 Obstructive sleep apnea (adult) (pediatric); R73.03 Prediabetes; G25.81 Restless legs syndrome; M1A.00X0 Idiopathic chronic gout, unspecified site, without tophus (tophi); M47.816 Spondylosis without myelopathy or radiculopathy, lumbar region; Z87.891 Personal history of nicotine dependence; E66.01 Morbid (severe) obesity due to excess calories; Z68.39 Body mass index [BMI] 39.0-39.9, adult
CPT/HCPCS: 64721; A9270; J0690; J2704; J7120

== ENCOUNTER 2023-06-22 13:13 | Outpatient (CLI) | payer MEDICARE, OTHER, SELFPAY ==
[2023-06-22 13:49] LABS: Appearance Urine Clear (Clear); Bilirubin Urine Negative (Negative); Blood Urine Negative (Negative); Color Urine Dark Yellow (Yellow); Glucose Urine UA Negative (Negative); Ketones Urine Trace mg/dL (Negative); Leukocyte Esterase Ur Negative LEU/UL (Negative); Nitrate Urine Negative (Negative); Protein Urine Negative (Negative); Specific Grav Ur 1.027 (1.001-1.035)
[2023-06-22 13:58] LABS: Add Urine Microscopic? NO
== END 2023-06-22 13:14 | disposition home or self-care (01) ==
PROVIDERS: PCP Family Medicine; Visit Provider Physician Assistant
DX: R30.0 Dysuria (principal)
CPT/HCPCS: 81003

== ENCOUNTER 2023-07-12 11:16 | Outpatient (CLI) | payer MEDICARE, OTHER, SELFPAY | END 2023-07-12 11:17 | disposition home or self-care (01) | LOC: ANHLAB 11:18 | PROVIDERS: PCP Family Medicine; Visit Provider Family Medicine | DX: D64.9 Anemia, unspecified (principal) | CPT/HCPCS: 36415; 82728 ==

== ENCOUNTER 2023-11-22 07:02 | Outpatient (CLI) | payer MEDICARE, OTHER, SELFPAY ==
[2023-11-22 07:35] LABS: Basophils Percent Auto 0.5 % (0.2-1.2); Eosinophils Absolute Auto 0.2 K/mm3 (0-0.3); Eosinophils Percent Auto 3.4 % (0-4.4); Hematocrit 43.1 % (42.0-52.0); Hemoglobin 14.2 g/dL (14.0-18.0); Immature Granulocyte Absolute 0.04 K/mm3 (0.00-0.031); Immature Granulocyte Percent A 0.6 % (0-0.5); Lymphocytes Absolute Auto 1.42 K/mm3 (0.9-3.2); Mean Corpuscular HGB Conc 32.9 g/dl (32-36); Mean Corpuscular Hemoglobin 30.5 pg (26-34); Mean Corpuscular Volume 92.7 fl (80-100); Mean Platelet Volume 10.5 fl (7.4-10.4); Monocytes Absolute Auto 0.5 K/mm3 (0.1-0.6); Monocytes Percent Auto 8.1 % (2.6-8.5); Neutrophils Percent Auto 64.4 % (45.5-73.1); Platelet Count Result 164 k/mm3 (150-375); Red Blood Count 4.65 M/mm3 (4.6-6.20); Red Cell Distribution Width 13.4 % (11.5-14.5); White Blood Count 6.2 K/mm3 (4.5-10.0)
[2023-11-22 07:48] LABS: Alanine Aminotransferase 21 U/L (6-50); Albumin Level 3.9 g/dL (3.5-5.1); Alkaline Phosphatase 76 U/L (38-126); Anion Gap 6 mmol/L (4-12); Aspartate Amino Transferase 26 U/L (17-59); Bilirubin,Total 0.5 mg/dL (0.2-1.3); Blood Urea Nitrogen 14 mg/dL (9-20); Carbon Dioxide 32 mmol/L (22-30); Chloride 102 mmol/L (98-107); Cholesterol 205 mg/dL (0-200); Estimated Glomerular Filt Rate > 60; Glucose 135 mg/dL (65-110); HDL Direct 50 mg/dL; Potassium 3.8 mmol/L (3.4-5.0); Sodium 140 mmol/L (137-145); Triglycerides 156 mg/dL (<150)
[2023-11-22 07:59] LABS: LDL Cholesterol Direct 110 mg/dL
[2023-11-22 08:00] LABS: Hemoglobin A1C 6.1 % (<5.7)
[2023-11-22 08:18] LABS: Thyroid Stimulating Hormone 0.928 uIU/mL (0.465-4.680)
== END 2023-11-22 07:03 | disposition home or self-care (01) ==
LOC: ANHLAB 07:05
PROVIDERS: PCP Family Medicine; Visit Provider Family Medicine
DX: E07.9 Disorder of thyroid, unspecified (principal); E78.2 Mixed hyperlipidemia; I10 Essential (primary) hypertension; R73.09 Other abnormal glucose
CPT/HCPCS: 36415; 80053; 80061; 83036; 84443; 85025

== ENCOUNTER 2023-12-20 11:56 | Outpatient (CLI) | payer MEDICARE, OTHER, SELFPAY ==
--- NOTE | 2023-12-20 13:00 | ECG_ITS ---
Test Date: 2023-12-20 13:13:52 Measurements Intervals Ida Rate: 54 P: 16 OR: 197 QRS: -36 QRSD: 123 T: 21 QT: 393 QTc: 375 Interpretive Statements SINUS BRADYCARDIA LEFT AXIS DEVIATION INTRAVENTRICULAR CONDUCTION DELAY MINIMAL Q WAVES- HIGH LATERAL LEADS VOLTAGE CRITERIA FOR LVH POOR R WAVE PROGRESSION BASELINE ARTIFACT- I, II, III, AVR, AVL, AVF, V4-V6 BORDERLINE ECG No previous ECG available for comparison Electronically Signed On 12-20-2023 13:23:49 CDT by Moo Jj D.O.
[2023-12-20 15:27] LABS: MRSA (PCR) NOT DETECTED (NOT DETECTE)
== END 2023-12-20 11:57 | disposition home or self-care (01) ==
PROVIDERS: PCP Family Medicine; Visit Provider Orthopaedic Surgery
DX: Z01.818 Encounter for other preprocedural examination (principal); M17.11 Unilateral primary osteoarthritis, right knee; R00.1 Bradycardia, unspecified; I44.4 Left anterior fascicular block; I45.4 Nonspecific intraventricular block
CPT/HCPCS: 80307; 81001; 85610; 85730; 86850; 86900; 86901; 87641; 93005

== ENCOUNTER 2023-12-27 01:21 | Day surgery (SDC) | payer MEDICARE, OTHER, SELFPAY ==
[2023-12-20 12:08] VITALS: BMI 40.2
[2023-12-20 12:10] VITALS: BMI 40.2
--- NOTE | 2023-12-20 12:41 | PC.NURSE ---
Report to the Outpatient Waiting Room, entrance under the green pavilion located off [facility], at time _8:30 AM on date _12/27/23 . Planned Procedure Time: __10:30AM .? Time changes happen often and if your time is changed the preop area will call you the afternoon before. - You and your visitor will be asked to self-screen and do not enter if you have any COVID symptoms. Please call surgeon if you need to reschedule. - A mask is optional within the hospital at this time. Patients may have clear liquids (water, carbonated beverages, clear teas, apple juice) until 3 hours prior to surgery( 7:30 AM) with a maximum of 20 ounces. - No food from midnight until time of surgery and no smoking - Infants may have breast milk until 4 hours before surgery, formula 6 hours prior to surgery. - Children will be allowed to drink immediately following surgery.? If applicable, please bring a bottle or sippy cup to assist with drinking. Juice, water, soda, and popsicles are readily available.? For infants on formula, please bring formula the day of surgery.? Pacifiers are allowed. Take only the following medications with a SIP of water on the morning of surgery: _BUSPIRONE, EYE DROPS DO NOT STOP ANY OF YOUR OTHER PRESCRIPTION MEDICATIONS PRIOR TO SURGERY EXCEPT THE FOLLOWING Medications to discontinue per physician ___MAY TAKE TYLENOL IF NEEDED FOR PAIN Please no make-up, nail [place], hairspray, perfume, deodorant, or body powder the day of surgery.? No jewelry (including any body piercings) or valuables the day of surgery, leave them at home.? Please take a shower or bath the night before, or the morning of, surgery with an antibacterial soap.? Wear comfortable, loose fitting clothing.? Children are encouraged to wear pajamas. - Jewelry must be removed prior to entering the operating room.? Rings and piercings that are not removed may be cut off. - The hospital will not accept responsibility for valuables.? - Please leave all valuables, including medications, at home the day of surgery. If you are going home after surgery, a licensed front end loader driver must drive you home.? - NO public transportation without another adult if you receive anesthesia. - We recommend that an adult stay with you for 24 hours following discharge. - We also recommend that you do not drive, make important decision, drink alcoholic beverages, or take any drugs that were not prescribed by your health care provider for at least 24 hours after your discharge time. Follow any additional instructions given to you from your surgeon. VERBAL AND WRITTEN instructions given to ___PATIENT and asked if any additional questions and then verbalized understanding. Patient advised to call surgeon office or pre surgery nurse liaison [phone] if any additional questions.
[2023-12-20 12:56] VITALS: BP 173/77; PULSE 60; RESP 18; TEMP 37; O2SAT 98
[2023-12-20 14:14] LABS: Add Urine Microscopic? YES; Appearance Urine Clear (Clear); Bilirubin Urine Negative (Negative); Blood Urine Negative (Negative); Color Urine Dark Yellow (Yellow); Glucose Urine UA Negative (Negative); Ketones Urine Trace mg/dL (Negative); Leukocyte Esterase Ur Negative LEU/UL (Negative); Nitrate Urine Negative (Negative); Protein Urine Negative (Negative); Specific Grav Ur 1.021 (1.001-1.035); pH Urine 5.5 (5.0-9.0)
[2023-12-20 14:23] LABS: Urine Cotinine NEGATIVE
[2023-12-20 14:27] LABS: Prothrombin Time 13.2 Seconds (11.1-14.7)
[2023-12-20 14:28] LABS: Partial Thromboplastin Time 27.5 Seconds (22.3-36.8)
[2023-12-27] VITALS (13 sets, daily range): BP systolic 124–150; BP diastolic 58–74; PULSE 53–63; RESP 14–20; TEMP 35.9–36.8; O2SAT 96–100
--- NOTE | ~2023-12-27 | XR_ITS ---
EXAMINATION: [id number] DATE: 12/27/2023 13:49 INDICATION: Right knee arthroplasty. Postop. TECHNIQUE: 2 views of right knee were obtained. COMPARISON: None. FINDINGS: There is a total right knee arthroplasty without patellar resurfacing in near-anatomic alig nment. No fracture. There is gas in the soft tissues, consistent with recent surgery. Anterior skin s taples are noted. IMPRESSION: 1. Total right knee arthroplasty in near-anatomic alignment. Reviewed, dictated and finalized at location A.
--- NOTE | 2023-12-27 07:19 | WPDHPUPDATE1 ---
History and Physical Update Update Date/Time: 12/27/23 07:19 History and Physical has been reviewed, including an updated exam of the patient. There are NO changes in the patient's condition. Risks, benefits, and alternatives have been discussed and questions answered. Patient agrees to proceed with procedure.
[2023-12-27] MEDS: ACETAMINOPHEN 500 MG TABLET 1000 MG PO (09:33)
[2023-12-27] MEDS: LACTATED RINGERS 1,000 ML 30 ML IV CONT ×2 (09:40→13:18)
--- NOTE | 2023-12-27 10:26 | WPDANESEPPF ---
Anes - Initial Pre Proc Eval Procedure: Operation Date: 12/27/23 10:30 Proposed Procedures p Right Total Knee Arthroplasty - Thad Rowan MD Date/Time: 12/27/23 10:26 Surgeon: Thad Rowan MD Pre Op Diagnosis: right knee djd Patient Data Age: 68 Gender: M Height: 1.71 m Weight: 115.9 kg Last Vital Signs Temp 97.5 F L 12/27/23 08:55 Pulse 61 12/27/23 08:55 Resp 20 12/27/23 08:55 BP 126/58 L 12/27/23 08:55 Pulse Ox 98 12/27/23 08:55 O2 Del Method Room Air 12/27/23 08:55 Allergies Allergy/AdvReac Type Severity Reaction Status Date / Time CARMINE Inhibitors AdvReac Mild coughing Verified 12/20/23 12:15 atorvastatin AdvReac Mild Joint Pain Verified 12/20/23 12:15 isosorbide AdvReac Mild Cough Verified 12/20/23 12:15 liraglutide AdvReac Mild Cough Verified 12/20/23 12:15 losartan AdvReac Mild Cough Verified 12/20/23 12:15 tamsulosin AdvReac Mild Dry Mouth Verified 12/20/23 12:15 metformin AdvReac Diarrhea Verified 12/20/23 12:15 Home Medications Medication Instructions Recorded Confirmed Type buspirone 15 mg tablet See Rx Instructions .Route 12/02/22 12/27/23 Rx .COMPLEX #270 tabs pantoprazole 40 mg tablet,delayed 40 mg PO DAILY #90 tabs 12/02/22 12/27/23 Rx release tramadol 50 mg tablet 50 mg PO Q8H PRN Pain, Moderate 03/08/23 12/20/23 Rx #30 tabs acetaminophen 500 mg capsule 500 mg PO Q6H PRN Pain 05/08/23 12/20/23 History ropinirole 0.5 mg tablet See Rx Instructions .Route 05/08/23 12/27/23 History .COMPLEX RLS tadalafil 5 mg tablet (Cialis) 5 mg PO DAILY #30 tabs 05/23/23 12/20/23 Rx tobramycin 0.3 % eye drops 2 drp EACH EYE Q4H #5 mL 06/20/23 12/27/23 Rx CPAP Pressure Change #1 ea 07/06/23 12/18/23 Rx furosemide 20 mg tablet See Rx Instructions .Route 08/28/23 12/27/23 Rx .COMPLEX #90 tabs tamsulosin 0.4 mg capsule See Rx Instructions .Route 09/06/23 12/27/23 Rx .COMPLEX #90 caps quetiapine 25 mg tablet (Seroquel) 50 mg PO QHS #90 tabs 10/19/23 12/27/23 Rx telmisartan 40 mg tablet See Rx Instructions .Route 11/07/23 12/27/23 Rx .COMPLEX #90 tabs paroxetine HCl 20 mg tablet 20 mg PO DAILY #30 tabs 12/04/23 12/27/23 Rx finasteride 5 mg tablet See Rx Instructions .Route 12/06/23 12/27/23 Rx .COMPLEX #90 tabs chlorhexidine gluconate 4 % 1 applic topical DAILY #237 mL 12/15/23 12/27/23 Rx topical liquid (Hibiclens) amlodipine 10 mg tablet See Rx Instructions .Route 12/16/23 12/27/23 Rx .COMPLEX #90 tabs Patient hx anesthesia problems: none Family hx anesthesia problems: none Results Review: All pre-operative results and documents have been reviewed as part of the pre-operative evaluation. 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 Essential (primary) hypertension Generalized anxiety disorder Idiopathic chronic gout, unspecified site, without tophus (tophi) Knee joint effusion Knee pain, acute Left knee DJD Left wrist pain Lumbar radicular syndrome Lumbar spondylosis MDD (major depressive disorder), recurrent episode, moderate Mixed hyperlipidemia Morbid (severe) obesity due to excess calories Obstructive sleep apnea (adult) (pediatric) Prediabetes Restless legs syndrome Right knee DJD Right wrist pain Rotator cuff tear, left Rupture of right rotator cuff Trigger finger of right thumb Varicose veins of both lower extremities Varicose veins of right lower extremity with pain Surgical History Surgical History History of carpal tunnel surgery of left wrist History of repair of right rotator cuff Family History Family H
--- NOTE | 2023-12-27 10:32 | WPDANESPNB ---
Anes - Peripheral Nerve Block Date/Time: 12/27/23 10:32 I have discussed with the patient/family/POA the placement of a peripheral nerve block for post-operative pain management, including associated risks, benefits, complications, and side effects. Alternative methods of post-operative analgesia were detailed. Questions were solicited and answers provided to the satisfaction of the patient/family/POA. Time-Out: A pre-procedural Time-Out was completed immediately before starting the procedure and confirmed: Patient Identification, Site, Procedure, Patient Position and the Availability of Requisite Equipment. Clinical Indications: Acute post-operative pain management requested by the operative surgeon. Nerve Block Insertion Note Anes-nerve block: adductor canal right Patient position: supine Skin prep: chlorhexidine Needle: 22 gauge, stimulating, insulated echogenic needle. Needle length: 80 mm Technique: ultrasound Injectate: other (Bupiv 0.5% 15 ml. ) Observations: tolerated well Procedure start time:: 1032 Procedure end time:: 1038
[2023-12-27] MEDS: ceFAZolin 2 GM/D5W 50 ML 2 GM/50 ML BAG IVPB ×2 (10:58→18:54)
[2023-12-27] MEDS: SODIUM CHLORIDE 0.9% IV 37.7 ML, MORPHINE SULFATE INJ (*CRX) 2 MG, ROPivacaine HCL 1% 2... INFILTRATE (12:22)
[2023-12-27] MEDS: GENTAMICIN BONE CEMENT REFOBACIN 1 EACH TOPICAL (12:23)
[2023-12-27] MEDS: TRANEXAMIC ACID 1,000 MG/10 ML AMPUL 1000 MG IV PUSH (12:30)
--- NOTE | 2023-12-27 13:20 | W.PM.PROC2 ---
Procedure Note - Detailed Date of Procedure 12/27/23 Pre-op Diagnosis right knee djd Post-op Diagnosis Same Procedure Performed R TKA Surgeon Thad Rowan MD Anesthesia General Description of Procedure THE RIGHT KNEE WAS PREPPED AND DRAPED IN THE STERILE FASHION. THERE WAS A 20 DEGREE FLEXION CONTRACTURE. A MIDLINE SKIN INCISION WAS MADE. A MEDIAL PARAPATELLAR ARTHROTOMY WAS MADE. THE PATELLA WAS EVERTED. THERE WAS TRICOMPARTMENT DJD. THERE WAS MINIMAL PATELLA DJD. AN INTRAMEDULLARY PEDRO WAS PLACED IN THE FEMUR. A DISTAL FEMORAL CUT WAS MADE IN 5 DEGREES OF VALGUS REMOVING APPROXIMATELY 11 MM OF BONE FROM THE DISTAL FEMUR. THE FEMUR WAS SIZED TO 70. A 70 FEMORAL CUTTING BLOCK WAS PLACED IN 3 DEGREES OF EXTERNAL ROTATION AND IN ALIGNMENT WITH OTTONIEL'S LINE AND THE TRANSEPICONDYLAR AXIS. ANTERIOR POSTERIOR AND CHAMFER CUTS WERE MADE. THE CUTS WERE EXCELLENT. NEXT AN INTRAMEDULLARY CUTTING GUIDE WAS PLACED IN THE TIBIA. A TRANS TIBIAL CUT WAS MADE ALONG THE LONG AXIS OF THE TIBIA. APPROXIMATELY 10 MM OF BONE WAS REMOVED FROM THE HIGH SIDE OF THE TIBIA. THE TIBIA WAS THEN PLANED TO A SMOOTH SURFACE. POSTERIOR FEMORAL OSTEOPHYTES WERE REMOVED FROM THE FEMORAL CONDYLES. A 79 TIBIAL TRIAL WAS PLACED IN ALIGNMENT WITH THE 1/3 MEDIAL ASPECT OF THE TIBIAL TUBERCLE. THEN A 70 FEMORAL TRIAL COMPONENT WAS PLACED. BOTH HAD EXCELLENT FITS. EVENTUALLY A 10 MM CR POLYETHYLENE TRIAL COMPONENT WAS PLACED. THE KNEE WAS TAKEN THROUGH A RANGE OF MOTION. THE KNEE CAME OUT TO FULL EXTENSION. THERE WAS NO ABNORMAL TILT TO THE PATELLA. THERE WAS GOOD A/P AND VARUS/VALGUS STABILITY. THERE WAS NO EXCESSIVE ROLL BACK WITH FLEXION. THE TRIAL COMPONENTS WERE REMOVED. THEN A 70 FEMORAL COMPONENT AND 79 TIBIAL COMPONENT WITH A 10 CR POLYETHYLENE COMPONENT WERE CEMENTED INTO PLACE. ONCE THE CEMENT WAS HARD THE KNEE WAS TAKEN THROUGH A ROM AGAIN AND FOUND TO BE STABLE WITH NO PATELLA TILT NO EXCESSIVE ROLL BACK WITH FLEXION AND GOOD STABILITY WITH COMPLETE AND FULL EXTENSION. THE KNEE WAS IRRIGATED WITH STERILE BETADINE AND WATER FOR ABOUT 3 MINUTES. THE BLEEDERS WERE CAUTERIZED. THE ARTHROTOMY WAS REPAIRED WITH NUMBER 1 VICRYL. THE SUB CUTANEOUS LAYER WITH 2-0 VICRYL AND THE SKIN WITH MARICEL. THE WOUND WAS WASHED AND A STERILE DRESSING WAS APPLIED. PATIENT WAS EXTUBATED. Estimated Blood Loss 200 Pathology None sent Complications No immediate complications Condition Stable Disposition PACU
[2023-12-27] MEDS: fentaNYL CITRATE INJ (*CRX) 100 MCG/2 ML VIAL 25 MCG IV PUSH ×4 (13:40→13:49)
--- NOTE | 2023-12-27 15:16 | ADMGEN ---
This patient, Matthew Alcantar, was admitted to Medical Room 248-. Patient/family oriented to hospital policies and general routines including ID bracelet, bed and alarms, visiting hours, pain management, procedures, bathroom and other care routines, personal items, smoking policy, room service/diet, and visiting hours. Information on how to activate the Rapid Response Team has been discussed. Patient/Family are encouraged to report perceived risks to care and to ask questions if they do not understand what they are told or what they should do.
[2023-12-27] MEDS: busPIRone HCL 5 MG TABLET 15 MG BY MOUTH ×2 (16:23→20:00)
[2023-12-27] MEDS: SENNA/DOCUSATE SODIUM TABLET 2 TAB PO (16:23)
[2023-12-27] MEDS: KETOROLAC 15 MG/ML VIAL (*BKC) IV PUSH ×2 (16:31→20:05)
[2023-12-27] MEDS: ASPIRIN 325 MG ENTERIC TABLET PO (20:00)
[2023-12-27] MEDS: rOPINIRole HCL 0.5 MG TABLET 1 MG BY MOUTH (20:00)
[2023-12-27] MEDS: QUEtiapine FUMARATE 25 MG TABLET 50 MG PO (20:00)
[2023-12-27] MEDS: TAMSULOSIN HCL 0.4 MG CAPSULE BY MOUTH (20:00)
[2023-12-27] MEDS: PARoxetine 20 MG TABLET PO (20:00)
[2023-12-27] MEDS: FINASTERIDE 5 MG TABLET BY MOUTH (20:00)
[2023-12-27] MEDS: TOBRAMYCIN SULFATE 0.3% OPHTH SOLN 5 ML 2 DROP EACH EYE (20:01)
[2023-12-27] MEDS: FAMOTIDINE 20 MG TABLET PO (20:01)
[2023-12-28] MEDS: KETOROLAC 15 MG/ML VIAL (*BKC) IV PUSH ×2 (02:32→09:12)
[2023-12-28] MEDS: ceFAZolin 2 GM/D5W 50 ML 2 GM/50 ML BAG IVPB ×2 (02:32→11:13)
[2023-12-28 04:00] VITALS: BP 124/54; PULSE 58; RESP 18; TEMP 37.2; O2SAT 95
[2023-12-28] MEDS: busPIRone HCL 5 MG TABLET 15 MG BY MOUTH (06:07)
[2023-12-28 06:45] LABS: Basophils Percent Auto 0.2 % (0.2-1.2); Eosinophils Percent Auto 0.1 % (0-4.4); Immature Granulocyte Absolute 0.06 K/mm3 (0.00-0.031); Immature Granulocyte Percent A 0.5 % (0-0.5); Immature Platelet Fraction Pct 9.5 % (0.9-11.2); Lymphocytes Absolute Auto 1.16 K/mm3 (0.9-3.2); Lymphocytes Percent Auto 10.4 % (18.3-44.2); Mean Corpuscular HGB Conc 32.4 g/dl (32-36); Mean Corpuscular Hemoglobin 30.5 pg (26-34); Mean Corpuscular Volume 93.9 fl (80-100); Mean Platelet Volume 11.5 fl (7.4-10.4); Monocytes Absolute Auto 0.9 K/mm3 (0.1-0.6); Monocytes Percent Auto 7.8 % (2.6-8.5); Platelet Count Result 98 k/mm3 (150-375); Red Blood Count 3.94 M/mm3 (4.6-6.20); Red Cell Distribution Width 12.8 % (11.5-14.5); White Blood Count 11.2 K/mm3 (4.5-10.0)
[2023-12-28 06:55] LABS: Carbon Dioxide 27 mmol/L (22-30); Chloride 102 mmol/L (98-107); Potassium 4.3 mmol/L (3.4-5.0); Sodium 134 mmol/L (137-145)
[2023-12-28 06:56] LABS: Anion Gap 5 mmol/L (4-12); Blood Urea Nitrogen 15 mg/dL (9-20); Calcium 8.5 mg/dL (8.4-10.2); Estimated CRCL calculation 82 ml/min; Estimated Glomerular Filt Rate > 60; Glucose 124 mg/dL (65-110)
[2023-12-28 08:00] VITALS: BP 104/53; PULSE 73; RESP 18; TEMP 36.2; O2SAT 98
[2023-12-28] MEDS: SENNA/DOCUSATE SODIUM TABLET 2 TAB PO (09:00)
[2023-12-28] MEDS: FAMOTIDINE 20 MG TABLET PO (09:07)
[2023-12-28] MEDS: ACETAMINOPHEN 500 MG TABLET PO (09:09)
[2023-12-28] MEDS: ASPIRIN 325 MG ENTERIC TABLET PO (09:09)
[2023-12-28] MEDS: FUROSEMIDE 20 MG TABLET BY MOUTH (09:11)
[2023-12-28] MEDS: TELMISARTAN 40 MG TABLET 80 MG BY MOUTH (09:11)
[2023-12-28] MEDS: rOPINIRole HCL 0.5 MG TABLET 1 MG BY MOUTH (09:11)
[2023-12-28] MEDS: amLODIPine BESYLATE 5 MG TABLET 10 MG BY MOUTH (09:17)
[2023-12-28 12:00] VITALS: BP 103/43; PULSE 63; RESP 18; TEMP 35.7; O2SAT 97
--- NOTE | 2023-12-28 12:32 | PM.PNORT ---
Progress Note: A&P Assessment and Plan (1) S/P total knee arthroplasty: Qualifiers: Laterality: right Qualified Code(s): Z96.651 - Presence of right artificial knee joint Code(s): Z96.659 - Presence of unspecified artificial knee joint Status: Acute Assessment and Plan: POD #1 : Right TKA Continue PT/OT. WBAT. Walker. HIGH FALL RISK. Continue pain control. Ice Knee. Protect skin. DVT prophylaxis with Aspirin. SCDs. Incentive Spirometry Use reviewed. Monitor Dressing. Change prior to discharge. Bowel Regimen. Dispo: Home with Home Health pending progress with PT/OT Plan Reviewed history, exam, radiographs and current labs with attending MD and covering surgeon, Dr. Rowan, who agrees with current plan as indicated above. No further recommendations from Dr. Rowan at this time. Subjective Subjective Date/Time Seen: 12/28/23 12:32 Post Op day: 1 Interval history: POD #1: Right TKA Patient doing well. Pain well controlled. No new concerns. Review of Systems Review of Systems: All systems reviewed & are unremarkable except as noted in HPI and below Constitutional: Constitutional: Denies fever(s) and Denies headache(s) ENT: Denies headache(s) Cardiovascular: Cardiovascular: Denies chest pain, Denies diaphoresis, Denies palpitations and Denies dyspnea Respiratory: Respiratory: Denies dyspnea Gastrointestinal: Gastrointestinal: Denies abdominal pain, Denies constipation, Denies nausea and Denies vomiting Genitourinary: Genitourinary: Denies dysuria and Reports nocturia Musculoskeletal: Musculoskeletal: Reports arthralgias (Right Knee ) and Reports joint swelling (Right Knee ) Neurologic: Denies headache(s) Endocrine: Endocrine: Denies palpitations Exam Const: General: comfortable and no acute distress Resp: Effort & Inspection: normal respiratory effort Cardio: Rate: regular rate Rhythm: regular rhythm GI: GI Palp: Yes Soft to palpation, No Tenderness to palpation present (GI) and No Guarding due to palpation present (GI) Skin: General skin exam: wounds noted Wounds: wounds noted Other: Incision c/d/i. No surrounding redness/warmth. No hematoma. Mild ecchymosis. No wound dehiscence Neuro: Cognition (Neuro): normal cognition Other: NV intact aside from block. Moves toes. Sensation intact to light touch. +ankle dorsiflexion/plantarflexion. Extrem: Right lower extremity: normal to inspection, knee Details: tenderness (diffuse, mild ) Location: of the patella, swelling (diffuse, consistent with surgical intervention ), abnormal ROM Details: pain with active ROM during, pain with passive ROM during and with range as follows (limited due to recent surgical intervention ); able to extend lower leg actively and ecchymosis (mild ), lower leg (Negative Monty's Sign ) Details: normal to inspection; no erythema and no tenderness, ankle (+ankle dorsiflexion/plantarflexion ) Details: normal to inspection, no edema and normal ROM; no tenderness, no swelling and no ecchymosis and foot Details: normal capillary refill, normal to inspection, vascular exam Details: dorsalis pedis pulse present and motor-sensory exam Details: light-touch normal; no tenderness Left lower extremity: normal to inspection Psych: Mental Status: mental status grossly normal Objective Data Vital Signs Vital Signs: Vital Signs - 24 hr 12/27/23 13:18 12/27/23 13:30 12/27/23 13:45 Temperature 36.8 C Pulse Rate 53 L 61 56 L Respiratory Rate 17 14 18 Blood Pressure 126/61 124/65 135/67 Pulse Oximetry 100 100 96 Oxygen Delivery Simple Face Mask Simple Face Mask Room Air Oxygen Flow Rate 8 8 12/27/23 14:00 12/27/23 14:15 12/27/23 14:27 Temperature Pulse Rate 59 L 57 L 60 Respiratory Rate 16 16 18 Blood Pressure 133/69 140/73 141/74 H Pulse Oximetry 99 100 100 Oxygen Delivery Nasal Cannula Nasal Cannula Nasal Cannula Oxygen Flow Rate 2 2 2 12/27/23 14:29 12/27/23 14
--- NOTE | 2023-12-28 12:34 | WPDANESPN ---
Anes - Prog Note Post-Op Date/Time: 12/28/23 12:34 Cardiovascular status: normal Respiratory status: normal Airway patency: baseline Mental status: baseline Post-Op hydration status: normal Vital Signs: Last Vital Signs Temp 36.2 C L 12/28/23 08:00 Pulse 73 12/28/23 08:00 Resp 18 12/28/23 08:00 BP 104/53 L 12/28/23 08:00 Pulse Ox 98 12/28/23 08:00 O2 Del Method Room Air 12/28/23 08:18 O2 Flow Rate 2 12/27/23 14:27 Pain Score (VAS): 2 I/O: Intake & Output 12/27/23 12/28/23 12/28/23 23:59 07:59 15:59 Intake Total 530 350 240 Output Total 350 Balance 530 0 240 Laboratory Tests 12/28/23 06:05 12/28/23 06:05 12/28/23 06:05 WBC 11.2 H RBC 3.94 L Hgb 12.0 L Hct 37.0 L MCV 93.9 MCH 30.5 MCHC 32.4 RDW 12.8 Plt Count 98 L MPV 11.5 H Immature Gran % (Auto) 0.5 Neut % (Auto) 81.0 H Lymph % (Auto) 10.4 L [place] % (Auto) 7.8 Eos % (Auto) 0.1 Baso % (Auto) 0.2 Lymph # (Auto) 1.16 [place] # (Auto) 0.9 H Eos # (Auto) 0.0 Baso # (Auto) 0.0 Abs Immat Gran (auto) 0.06 H Absolute Neuts (auto) 9.0 H Absolute Nucleated RBC 0.000 Nucleated RBC % 0.0 % Immature Plt Fraction 9.5 Sodium 134 L Potassium 4.3 Chloride 102 Carbon Dioxide 27 Anion Gap 5 BUN 15 Creatinine 0.90 Estim Creat Clear Calc 82 Estimated GFR > 60 Glucose 124 H Calcium 8.5 Post-procedural complaints: none Patient Feedback: Patient satisfied with anesthetic care.
--- NOTE | 2023-12-28 12:38 | PM.DS ---
DS: Admitting Diagnosis Discharge Date 12/28/2023 Admitting Diagnosis Right Knee DJD DS: Discharge Diagnosis Discharge Diagnosis (1) S/P total knee arthroplasty: Qualifiers: Laterality: right Qualified Code(s): Z96.651 - Presence of right artificial knee joint Code(s): Z96.659 - Presence of unspecified artificial knee joint Status: Acute Assessment and Plan: POD #1 : Right TKA Continue PT/OT. WBAT. Walker. HIGH FALL RISK. Continue pain control. Ice Knee. Protect skin. DVT prophylaxis with Aspirin. SCDs. Incentive Spirometry Use reviewed. Monitor Dressing. Change prior to discharge. Bowel Regimen. Dispo: Home with Home Health pending progress with PT/OT Plan Reviewed history, exam, radiographs and current labs with attending MD and covering surgeon, Dr. Rowan, who agrees with current plan as indicated above. No further recommendations from Dr. Rowan at this time. DS: Summary Hospital Course Reason for hospitalization: Right TKA Hospital Course: 68 year old male admitted s/p Right TKA for postoperative medical management, pain control and mobilization with PT/OT. Patient progressed well with PT/OT. Pain and vitals remained stable throughout. The patient has been cleared to be discharged home with home health at this time. All discharge care instructions reviewed at depth. New medications reviewed. Follow up planned for 3 weeks in the outpatient orthopedic clinic with Dr. Rowan. Dr. Rowan in agreement with safe discharge at this time. Status at Discharge Functional status at discharge: uses cane/walker Overall status at discharge: patient is progressing back to baseline Time Spent with Patient Time attestation: Total time spent providing and/or coordinating discharge services: Exam Const: General: comfortable and no acute distress Resp: Effort & Inspection: normal respiratory effort Cardio: Rate: regular rate Rhythm: regular rhythm Skin: General skin exam: wounds noted Wounds: wounds noted Other: Incision c/d/i. No surrounding redness/warmth. No hematoma. Mild ecchymosis. No wound dehiscence Neuro: Cognition (Neuro): normal cognition Other: NV intact aside from block. Moves toes. Sensation intact to light touch. +ankle dorsiflexion/plantarflexion. Extrem: Right lower extremity: normal to inspection, knee Details: tenderness (diffuse, mild ) Location: of the patella, swelling (diffuse, consistent with surgical intervention ), abnormal ROM Details: pain with active ROM during, pain with passive ROM during and with range as follows (limited due to recent surgical intervention ); able to extend lower leg actively and ecchymosis (mild ), lower leg (Negative Monty's Sign ) Details: normal to inspection; no erythema and no tenderness, ankle (+ankle dorsiflexion/plantarflexion ) Details: normal to inspection, no edema and normal ROM; no tenderness, no swelling and no ecchymosis and foot Details: normal capillary refill, normal to inspection, vascular exam Details: dorsalis pedis pulse present and motor-sensory exam Details: light-touch normal; no tenderness Left lower extremity: normal to inspection Psych: Mental Status: mental status grossly normal DS: Data Data Completed and Pending Labs on day of discharge: Labs from last 24 hours 12/28/23 06:05 WBC 11.2 H RBC 3.94 L Hgb 12.0 L Hct 37.0 L MCV 93.9 MCH 30.5 MCHC 32.4 RDW 12.8 Plt Count 98 L MPV 11.5 H Immature Gran % (Auto) 0.5 Neut % (Auto) 81.0 H Lymph % (Auto) 10.4 L [place] % (Auto) 7.8 Eos % (Auto) 0.1 Baso % (Auto) 0.2 Lymph # (Auto) 1.16 [place] # (Auto) 0.9 H Eos # (Auto) 0.0 Baso # (Auto) 0.0 Abs Immat Gran (auto) 0.06 H Absolute Neuts (auto) 9.0 H Absolute Nucleated RBC 0.000 Nucleated RBC % 0.0 % Immature Plt Fraction 9.5 Sodium 134 L Potassium 4.3 Chloride 102 Carbon Dioxide 27 Anion Gap 5 BUN 15 Creatinine 0.90 Estim Creat Clear Calc 82 Est
[2023-12-28 13:25] VITALS: BP 134/57
[2023-12-28 13:45] VITALS: TEMP 36.6
== END 2023-12-28 14:00 | disposition home health service (06) ==
LOC: ANHSURGERY 08:35 → ANH2MED 14:32
PROVIDERS: PCP Family Medicine; Visit Provider Orthopaedic Surgery
PROC: (CPT 27447; principal; 2023-12-27 10:30)
DX: M17.11 Unilateral primary osteoarthritis, right knee (principal); M25.761 Osteophyte, right knee; I10 Essential (primary) hypertension; E78.2 Mixed hyperlipidemia; G47.33 Obstructive sleep apnea (adult) (pediatric); R73.03 Prediabetes; N52.8 Other male erectile dysfunction; F41.9 Anxiety disorder, unspecified; G25.81 Restless legs syndrome; G56.03 Carpal tunnel syndrome, bilateral upper limbs; M16.12 Unilateral primary osteoarthritis, left hip; M43.06 Spondylolysis, lumbar region; G89.18 Other acute postprocedural pain; F33.9 Major depressive disorder, recurrent, unspecified; I83.93 Asymptomatic varicose veins of bilateral lower extremities; E66.01 Morbid (severe) obesity due to excess calories; Z68.39 Body mass index [BMI] 39.0-39.9, adult; Z79.891 Long term (current) use of opiate analgesic; Z99.89 Dependence on other enabling machines and devices; Z87.891 Personal history of nicotine dependence; Z82.49 Family history of ischemic heart disease and other diseases of the circulatory system
CPT/HCPCS: 64447; 27447; 36415; 73560; 80048; 85025; 85055; 97110; 97116; 97161; 97165; A9270; C1713; C1776; J0171; J0690; J1100; J1885; J2250; J2270; J2405; J2704; J2795; J3010; J7120

== ENCOUNTER 2024-03-27 10:15 | Outpatient (RCR) | payer MEDICARE, OTHER, SELFPAY ==
--- NOTE | 2024-01-31 09:04 | OPREHPOC ---
Outpatient Therapy Plan of Care This is a Multidisciplinary Plan of Care that may contain components documented by all disciplines (PT, OT, and ST.) PT Problem 1 PT Problem #1 Knowledge Deficit PT Goal 1 Goal / Goal Update Pt to be IND with issued HEP Target Visit 20 PT Problem 2 PT Problem #2 Pain PT Goal 1 Goal / Goal Update Pt to report pain no greater than 3/10 in the last week. Target Visit 10 PT Goal 2 Goal / Goal Update Pt to report 75% return to PLOF. PT Problem 3 PT Problem #3 Impaired Gait PT Goal 1 Goal / Goal Update Pt to improve 2 min walk distance from 95ft to 300ft. Target Visit 20 PT Goal 2 Goal / Goal Update Pt to be able to tolerate 30 mins of ambulation to be able to return to work at full duty. Target Visit 20 PT Problem 4 PT Problem #4 Impaired Range of Motion PT Goal 1 Goal / Goal Update Pt to improve active knee extension from 12 deg to 3 deg to improve stride length with ambulation Target Visit 20 PT Goal 2 Goal / Goal Update Pt to demonstrate knee flexion from to 115 deg to be able to squat and lift box from ground level. Target Visit 20
--- NOTE | 2024-01-31 09:04 | PTOPEVAL1 ---
Assessment and note entered by Kin Kate, PT, DPT Evaluation Information Assessment Status Evaluation Diagnosis R TKA ICD-10 Condition Codes (PT) Pain in left knee M25.562,Difficulty Walking R26.2 ,R26.9,Weakness R53.1,Z47.1 Onset 12/27/23 Subjective Information Pt had a R TKA on 12/27/23, fell out of bed onto knee on 01/27/24, was cleared by ortho prior to starting therapy. He states go far his recovery is going pretty well. He states he is planning to get back to work on 02/12/24. At this time he is still using a walker for ambulation. He would like to be able to for 30-60 mins without difficulty. Pt had 3 weeks of home health prior to starting outpatient therapy. Reported Pain Level Pain Score 3: Self Report Assessment PT Clinical Summary Pt presents to therapy today following a R TKA on 12/27/23. Today he demonstrates decreased active and passive knee ROM; active is currently 0-12-90 deg, decreased strength, and decreased functional mobility. He has residual swelling limiting ROM and strength. He ambulates with significant deviations, a decreased gait speed, and requires the use of an AD. Skilled therapy services are indicated to address the deficits noted above, to manage pain, and to return to PLOF. Plan of Care Interventions Electrical Stimulation,Gait Training,Hot Pack/Cold Pack,Intermittent Compression,Manual Therapy, Neuro Re-education,Patient/Caregiver Educati, Therapeutic Activities,Therapeutic Exercise PT Services Indicated Yes Treatment Frequency and 2-3x/wk for 20 visits Duration These treatments will address the objective and functional deficits as defined above. The patient will be advanced safely and appropriately in order for the patient to progress towards his/her prior level of function. Additional exercises will be introduced and as well as a comprehensive home exercise program upon discharge, if needed, ?to ensure carryover of functional gains achieved in the clinic. This treatment plan has been reviewed and agreement upon by the patient.
--- NOTE | 2024-02-02 08:57 | PCPTNOTE ---
Pt. cancelled due to car issues.
--- NOTE | 2024-02-08 08:36 | PCPTNOTE ---
Patient called to cancel stating his neck hurt too bad he cannot drive.
--- NOTE | 2024-02-21 13:25 | PTOPPROG ---
Assessment and note entered by Kin Kate, PT, DPT Evaluation Information Assessment Status Progress Diagnosis R TKA ICD-10 Condition Codes (PT) Pain in left knee M25.562,Difficulty Walking R26.2 ,R26.9,Weakness R53.1,Z47.1 Onset 12/27/23 Subjective Information Pt states his knee is pretty sore today. He states his knee has really improved since his surgery. He states he still needs to get better at using the cane, but he would eventually like to get rid of this. He states his neck has improved since he has been off of the walker but is still sore at times. Assessment PT Clinical Summary Pt presents to therapy today following 7 visits of skilled therapy to treat his R TKA completed on . He continues to demonstrate decreased active and passive knee ROM; active is currently 0 -10-100 deg. He demonstrates improved strength but still decreased from expected. His gait speed has improved but he continues to ambulate with significant deviations and requires the use of an AD. Continuation of skilled therapy services are indicated to address the deficits noted above, to manage pain, and to return to PLOF. Plan of Care Interventions Electrical Stimulation,Gait Training,Hot Pack/Cold Pack,Intermittent Compression,Manual Therapy, Neuro Re-education,Patient/Caregiver Educati, Therapeutic Activities,Therapeutic Exercise PT Services Indicated Yes Treatment Frequency and 2-3x/wk for 20 visits, continue per POC Duration These treatments will address the objective and functional deficits as defined above. The patient will be advanced safely and appropriately in order for the patient to progress towards his/her prior level of function. Additional exercises will be introduced and as well as a comprehensive home exercise program upon discharge, if needed, ?to ensure carryover of functional gains achieved in the clinic. This treatment plan has been reviewed and agreement upon by the patient.
--- NOTE | 2024-02-21 13:26 | OPREHPOC ---
Outpatient Therapy Plan of Care This is a Multidisciplinary Plan of Care that may contain components documented by all disciplines (PT, OT, and ST.) PT Problem 1 PT Problem #1 Knowledge Deficit PT Goal 1 Goal / Goal Update Pt to be IND with issued HEP 02/21/24: met Target Visit 20 PT Problem 2 PT Problem #2 Pain PT Goal 1 Goal / Goal Update Pt to report pain no greater than 3/10 in the last week. 02/21/24: not met Target Visit 10 PT Goal 2 Goal / Goal Update Pt to report 75% return to PLOF. 02/21/24: not met PT Problem 3 PT Problem #3 Impaired Gait PT Goal 1 Goal / Goal Update Pt to improve 2 min walk distance from 95ft to 300ft. 02/21/24: progressing Target Visit 20 PT Goal 2 Goal / Goal Update Pt to be able to tolerate 30 mins of ambulation to be able to return to work at full duty. 02/21/24: not met Target Visit 20 PT Problem 4 PT Problem #4 Impaired Range of Motion PT Goal 1 Goal / Goal Update Pt to improve active knee extension from 12 deg to 3 deg to improve stride length with ambulation 02/21/24: progressing, 10 deg Target Visit 20 PT Goal 2 Goal / Goal Update Pt to demonstrate knee flexion ROM to 115 deg to be able to squat and lift box from ground level. 02/21/24: not met, 110 deg Target Visit 20
--- NOTE | 2024-02-27 11:53 | PCPTNOTE ---
Patient called to cancel due to something coming up.
--- NOTE | 2024-03-12 11:25 | PCPTNOTE ---
Patient called to cancel due to conflicting appointment.
--- NOTE | 2024-03-14 16:11 | PCPTNOTE ---
Patient called to cancel therapy due to work conflict.
--- NOTE | 2024-03-27 10:53 | OPREHPOC ---
Outpatient Therapy Plan of Care This is a Multidisciplinary Plan of Care that may contain components documented by all disciplines (PT, OT, and ST.) PT Problem 1 PT Problem #1 Knowledge Deficit PT Goal 1 Goal / Goal Update Pt to be IND with issued HEP 02/21/24: met 03/27/24: met Target Visit 20 Progress Met PT Problem 2 PT Problem #2 Pain PT Goal 1 Goal / Goal Update Pt to report pain no greater than 3/10 in the last week. 02/21/24: not met 03/27/24: progressing, 4/10 Target Visit 10 PT Goal 2 Goal / Goal Update Pt to report 75% return to PLOF. 02/21/24: not met 03/27/24: met, 80% PT Problem 3 PT Problem #3 Impaired Gait PT Goal 1 Goal / Goal Update Pt to improve 2 min walk distance from 95ft to 300ft. 02/21/24: progressing 03/27/24: met, 350ft Target Visit 20 PT Goal 2 Goal / Goal Update Pt to be able to tolerate 30 mins of ambulation to be able to return to work at full duty. 02/21/24: not met 03/27/24: progressing to 15 mins Target Visit 20 PT Problem 4 PT Problem #4 Impaired Range of Motion PT Goal 1 Goal / Goal Update Pt to improve active knee extension from 12 deg to 3 deg to improve stride length with ambulation 02/21/24: progressing, 10 deg 03/27/24: progressing, 8 deg Target Visit 20 PT Goal 2 Goal / Goal Update Pt to demonstrate knee flexion ROM to 115 deg to be able to squat and lift box from ground level. 02/21/24: not met, 110 deg 03/27/24: progressing, 112 deg Target Visit 20
--- NOTE | 2024-03-27 10:53 | PTOPDC ---
Assessment and note entered by Kin Kate, PT, DPT Evaluation Information Assessment Status Discharge Diagnosis R TKA ICD-10 Condition Codes (PT) Pain in left knee M25.562,Difficulty Walking R26.2 ,Abnormalities of gait and mobility R26.9,Weakness R53.1,Aftercare following joint replacement surgery Z47.1 Onset 12/27/23 Subjective Information Pt states it feels like his knee is coming along pretty well. He states he still gets a lit bit of pain and swelling when he is up on his feet for an extended period of time. Pt reports an 80% return to prior level of function. He reports he is starting to get some pain in his L knee as well. Reported Pain Level Pain Score 1,3: Self Report Pain Score 0,5,5: Self Report Assessment PT Clinical Summary Pt presents to therapy today following 13 visits of skilled therapy to treat his R TKA completed on 12/27/23. He continues to demonstrate decreased active and passive knee ROM; passive is currently 0-7-115 deg. His gait speed has improved but he continues to ambulate with significant deviations and requires the use of an AD. He elected to continue his HEP IND while waiting for his L TKA early next year. Pt educated if he needs additional therapy to contact his provider. Plan of Care PT Services Indicated Yes
== END 2024-03-27 13:14 | disposition home or self-care (01) ==
LOC: ANHGOSHPT 10:15
PROVIDERS: PCP Family Medicine; Visit Provider Orthopaedic Surgery
DX: Z47.1 Aftercare following joint replacement surgery (principal); Z96.651 Presence of right artificial knee joint
CPT/HCPCS: 97014; 97016; 97110; 97116; 97140; 97161; 97530; G0283

== ENCOUNTER 2024-06-19 09:11 | Outpatient (CLI) | payer MEDICARE, OTHER, SELFPAY ==
[2024-06-19 09:32] LABS: Hematocrit 44.7 % (42.0-52.0); Hemoglobin 14.8 g/dL (14.0-18.0); Mean Corpuscular HGB Conc 33.1 g/dl (32-36); Mean Corpuscular Hemoglobin 29.2 pg (26-34); Mean Corpuscular Volume 88.2 fl (80-100); Mean Platelet Volume 9.8 fl (7.4-10.4); Platelet Count Result 204 k/mm3 (150-375); Red Blood Count 5.07 M/mm3 (4.6-6.20); Red Cell Distribution Width 13.8 % (11.5-14.5); White Blood Count 6.7 K/mm3 (4.5-10.0)
[2024-06-19 09:41] LABS: Hemoglobin A1C 5.7 % (<5.7)
[2024-06-19 09:42] LABS: Alanine Aminotransferase 15 U/L (6-50); Albumin Level 4.4 g/dL (3.5-5.1); Alkaline Phosphatase 86 U/L (38-126); Anion Gap 10 mmol/L (4-12); Aspartate Amino Transferase 20 U/L (17-59); Bilirubin,Total 0.7 mg/dL (0.2-1.3); Blood Urea Nitrogen 16 mg/dL (9-20); Calcium 9.3 mg/dL (8.4-10.2); Carbon Dioxide 25 mmol/L (22-30); Chloride 105 mmol/L (98-107); Cholesterol 211 mg/dL (0-200); Estimated Glomerular Filt Rate > 60; Glucose 134 mg/dL (65-110); HDL Direct 57 mg/dL; Potassium 4.1 mmol/L (3.4-5.0); Sodium 140 mmol/L (137-145); Triglycerides 95 mg/dL (<150)
--- OUTSIDE RECORDS SUMMARY | 2024-06-19 09:49 | XMS_ITS | CONTINUITY OF CARE DOCUMENT ---
Author Name aubrey burgos Address Unknown Organization [facility] Address [address] [place] [address] Phone [phone] Care Team Providers Care Plug Cutter Name Role Phone Carey LOCKE, Mike Unavailable Stephanie PROVIDER ENGAGEMENT EXECUTIVE, Perla Unavailable FRANCES LOCKE, NOLAN Unavailable PROBLEMS Condition Status Date Provider Notes Varicose veins of the lower extremities active Mike Patino MD HTN essential active Mike Patino MD Diabetes mellitus, borderline active Mike Patino MD Arthritis active Mike Patino MD Cardiology examination active Anneliese Ventim iglia POLISHER DIAL ÁNGEL, adult active Anneliese Ventimiglia POLISHER DIAL Anxiety active Anneliese Ventimiglia POLISHER DIAL Shortness of breath active Anneliese Ventimigl ia POLISHER DIAL ENCOUNTERS Date Type Provider Location Encounter Diag nosis - In-person encounter Office Visit Mike Patino MD [facility] Cardiology examinationOSA, adultAnxietyShortness of breath - In-person encounter Office Visit Mike Patino MD [facility] - In-person encounter Office Visit Mike Patino MD [facility] - In-person encounter Office Visit Mike Patino MD [facility] - In-person encounter Office Visit Mike Patino MD [facility] - In-person encounter Office Visit Mike Patino MD [facility] - In-person encounter Office Visit Mike Patino MD [facility] Varicose veins of the lower extremitiesHTN essentialDiabetes mellitus, borderlineArthritis VITAL SIGNS Date Observation Value Provider Body Mass Index (Ratio) 37.51 kg/m2 Jake Patino MD blood pressure, diastolic 78 mm[Hg[facility], [facility][Hg[facility], oximetry 97 % Rachael Fernandez pulse rate 72 /min [facility] rate E&M 12 /min [facility] weight E&M 254 [lb_av] [facility] height E&M 69 [in_i] [facility] blood pressure, cuff size regular [facility] Body Mass Index (Ratio) 40.46 kg/m2 Jake Patino MD blood pressure, cuff size large Ke rri Trinidad blood pressure, diastolic 70 mm[Hg] Ke rri Trinidad blood pressure, systolic 124 mm[Hg] Orlando Abdi oxygen saturation, oximetry 96 % Cynthia Abdi respiratory rate E&M 12 /min Cynthia mcgovern pulse rate 66 /min Cynthia kerr weight E&M 274 [lb_av] Cynthia kerr height E&M 69 [in_i] Cynthia Reagan Body Mass Index (Ratio) 42.23 kg/m2 Jake Patino MD blood pressure, cuff size regular Ja rret blood pressure, diastolic 78 mm[Hg] Ja rret blood pressure, systolic 150 mm[Hg] Jar ret pulse rate 77 /min Barron respiratory rate E&M 12 /min Barron oxygen saturation, oximetry 98 % Barron weight E&M 286 [lb_av] Barron height E&M 69 [in_i] Barron y Body Mass Index (Ratio) 42.08 kg/m2 Jake Patino MD blood pressure, cuff size regular Ke rri Gruenenfeld blood pressure, diastolic 112 mm[Hg] Ke rri Gruenenfeld blood pressure, systolic 240 mm[Hg] Orlando ri Trinidad oxygen saturation, oximetry 98 % Cynthia Trinidad respiratory rate E&M 12 /min Cynthia mcgovern pulse rate 88 /min Cynthia Reagan er weight E&M 285 [lb_av] Cynthia Gruenenfe er height E&M 69 [in_i] Cynthia Jamesuenenfe [facility] Body Mass Index (Ratio) 40.90 kg/m2 Jake Patino MD blood pressure, diastolic 84 mm[Hg] [facility] angelito Braggs blood pressure, systolic 150 mm[Hg] [facility] helariela Braggs blood pressure, cuff size large Nh angelito Braggs oxygen saturation, oximetry 95 % Shannon Mane pulse rate 75 /min Shannonshar George willie respiratory rate E&M 16 /min Inessa edwards Mane weight E&M 277 [lb_av] Shannon George willie height E&M 69 [in_i] Shannon George willie Body Mass Index (Ratio) 40.61 kg/m2 Jake Patino MD blood pressure, diastolic 86 mm[Hg] [facility] Corbett blood pressure, systolic 167 mm[Hg] Sta gwen Aric oxygen saturation, oximetry 98 % Latoniagwen Corbett pulse rate 67 /min Latoniagwen Corbett respiratory rate E&M 16 /min Latonia gleason weight E&M 275 [lb_av] Latoniagwen Corbett height E&M 69 [in_i] Latonia Corbett Body Mass Index (Ratio) 40.90 kg/m2 Jake Patino MD blood pressure, diastolic 78 mm[Hg] Li nkLoggage blood pressure, systolic 146 mm[Hg] Carolyn kLoggage respiratory rate E&M 16 /min Sera edwards Mills blood pressure, diastolic 78 mm[Hg] Ri angelito Mills blood pressure, systolic 146 mm[Hg] Uvaldo celsa Mills blood pressure, cuff size large Jonas Mills pulse rate 55 /min Gosia scott oxygen saturation, oximetry 98 % Gosia Mills weight E&M 277 [lb_av] Gosia scott height E&M 69 [in_i] Gosia scott ALLERGIES No Known Drug Allergies HISTORY OF MEDICATION USE Medication Status Instructions Dates Provider Indications Com ments furosemide 20 mg tablet active Anneliese Ventimiglia POLISHER DIAL telmisartan 80 mg tablet active TAKE 1 TABLET DAILY Mike Patino MD chlorthalidone 25 mg tablet completed TAKE 1 TABLET BY MOUTH EVERY DAY - Anneliese Radumiglia POLISHER DIAL buspirone 15 mg tablet active Latonia Corbett cyclobenzaprine 5 mg tablet active Latonia Corbett escitalopram oxalate 10 mg tablet completed - Anneliese Ventimiglia POLISHER DIAL celecoxib 100 mg capsule completed - Anneliese Radumiglia POLISHER DIAL furosemide 20 mg tablet completed - Mike Patino MD telmisartan 40 mg tablet completed - Mike Patino MD tamsulosin 0.4 mg capsule active Latonia Corbett ciprofloxacin HCl 0.3% drops completed - Anneliese Radumiglia POLISHER DIAL trazodone 100 mg tablet active Latonia Corbett prednisone 20 mg tablet completed - Anneliese Lovelacemiglia POLISHER DIAL cyclobenzaprine 10 mg tablet active Latonia Corbett finasteride 5 mg tablet active Latonia Corbett amlodipine 10 mg tablet active Latonia Corbett ropinirole 0.5 mg tablet completed - Anneliese Lovelacemiglia POLISHER DIAL quetiapine 25 mg tablet completed - Anneliese Lovelacemiglia POLISHER DIAL tramadol 50 mg tablet active Latonia Corbett SOCIAL HISTORY Date Observation Value Provider personal history of marijuana use no Anneliese Radumiglia [facility] drug use no Anneliese Radumig wilder [facility] alcohol use, average drinks per day social Anneliese Radumiglia [facility] alcohol use yes Anneliese Lovelacemig wilder [facility] passive cigarette sm jenny exposure no Anneliese Radumiglia [facility] chewing tobacco use Never Anneliese Brenda kamaramiglia [facility] smoking status Former smoker Anneliese carltonlia [facility] drug use no Mike Patino MD alcohol use, average drinks per day social Mike Patino MD alcohol use yes Mike Patino MD passive cigarette sm jenny exposure no Mike Patino MD chewing tobacco use Never Mike williamson MD smoking status Former smoker Mike Patino MD social history E&M S moking History: Maude marroquin is a former smoker. Mike Patino MD passive cigarette sm jenny exposure no Mike Patino MD chewing tobacco use Never Mike williamson MD smoking status Former smoker Mike Patino MD social history reviewed E&M revi ewed - no changes required Mike Patino MD social history reviewed E&M revi ewed - no changes required Mike Patino MD social history E&M S moking History: Maude marroquin is a former smoker. Mike Patino MD social history reviewed E&M revi ewed - no changes required Mike Patino MD passive cigarette sm jenny exposure no Shannon Mane chewing tobacco use Never Shannon Mane smoking status Former smoker Shannon Belinda liriano social history E&M S moking History: Maude marroquin is a former smoker. Mike Patino MD social history reviewed E&M revi ewed - no changes required Mike Patino MD passive cigarette sm jenny exposure no Latonia Corbett chewing tobacco use Never Latoniagwen Francis smoking status Former smoker Latonia Corbett drug use no Mike Patino MD alcohol use, average drinks per day social Mike Patino MD alcohol use yes Mike Patino MD social history E&M S moking History: Maude marroquin is a former smoker. Mike Patino MD social history reviewed E&M revi ewed - no changes required Mike Patino MD smoking status Former smoker Gosia Chandu wheat INSURANCE PROVIDERS Payer name Policy type / Coverage type [employer] party ID [employer] [id number] [place] Medicare [id number] ADVANCE DIRECTIVES Name Date DISCUSSED - NO DECISION MADE TREATMENT PLAN Date Name Performer [id number],C, r ecenrtly had right GSV occluded Mike Patino MD [id number],C,Per PCP Mike Patino MD [id number],C,I ncrease Telmisartan from 40mg to 80mg BP today: 150/78 P rior BP: 240/112 (01/02/2023) Mike Patino MD [id number],C,recenrtly had right GSV occluded Mike Patino MD [id number],C,A dded CHlorhtalidone 25 mg A lready taking telmisartan and amlodipine B P today: 240/112 P rior BP: 150/84 (08/05/2022) The following medications were removed from the medication list: Furosemide 20 Mg Tablet (Furosemide) His updated medication list for this problem includes: Telmisartan 40 Mg Tablet (Telmisartan) Chlorthalidone 25 Mg Tablet (Chlorthalidone) ..... Take 1 tablet by mouth every day Amlodipine 10 Mg Tablet (Amlodipine) Mike Patino MD [id number],S,W ill arrange an RPM. B P today: 150/84 P rior BP: 167/86 (04/14/2022) His updated medication list for this problem includes: Furosemide 20 Mg Tablet (Furosemide) Telmisartan 40 Mg Tablet (Telmisartan) Amlodipine 10 Mg Tablet (Amlodipine) Mike Patino MD [id number],S,P t had an Venaseal done of the left GSV and he seems to have done well. His post venous study showed closure of the vein. His varicosities are looking better and he is not having any issues. He has swelling and varicose veins with reflux. Will do the same procedure on the right GSV. Mike Patino MD [id number],S,P t has significant swelling in both legs. He has Sx of pain and some swelling in spite of trying compression socks. Will plan for venaseal to close the left GSV first as it is worse Mike Patino MD [id number],S, B P today: 167/86 P rior BP: 146/78 (01/13/2022) Mike Patino MD [id number],S,Per PCP Mike Patino MD [id number],S, Mike Patino MD [id number],S, Mike Patino MD [id number],S, Mike Patino MD [id number],C, B P today: 146/78 Mike Patino MD [id number],C,I t is specifically the left leg that bothers him. He has them bilaterally but the left are clinically more prominent. Will check a reflux venous study and continue compressiion socks. Mike Patino MD Cardiology:noted at night and when lying flat W ill do echo and labs T he following medications were removed from the medication list: Chlorthalidone 25 Mg Tablet (Chlorthalidone) ..... Take 1 tablet by mouth every day His updated medication list for this problem includes: Furosemide 20 Mg Tablet (Furosemide) Telmisartan 80 Mg Tablet (Telmisartan) ..... Take 1 tablet daily Amlodipine 10 Mg Tablet (Amlodipine) Anneliese Watson [facility] Cardiology:on buspar r ecommended he discuss with PCP possible psychiatry referral Anneliese Watson [facility] Cardiology:has been non-compliant with CPAP as cannot tolerate at night H e is planned to see sleep specialist Anneliese Lovelacemiglia [facility] Cardiology: H is updated medication list for this problem includes: Telmisartan 80 Mg Tablet (Telmisartan) ..... Take 1 tablet daily Anneliese Raduirenechuy [facility] Cardiology:no new issues Anneliese Walter [facility] Cardiology:BP 137/78 acceptable W ill continue present medication regimen T he following medications were removed from the medication list: Chlorthalidone 25 Mg Tablet (Chlorthalidone) ..... Take 1 tablet by mouth every day His updated medication list for this problem includes: Furosemide 20 Mg Tablet (Furosemide) Telmisartan 80 Mg Tablet (Telmisartan) ..... Take 1 tablet daily Amlodipine 10 Mg Tablet (Amlodipine) Anneliesegera Watson [facility] Cardiology Mike Patino MD Cardiology:candidate for L knee surgery. at acceptable risk Mike Patino MD Cardiology: H is updated medication list for this problem includes: Telmisartan 80 Mg Tablet (Telmisartan) ..... Take 1 tablet daily Chlorthalidone 25 Mg Tablet (Chlorthalidone) ..... Take 1 tablet by mouth every day Amlodipine 10 Mg Tablet (Amlodipine) BP today: 124/70 P rior BP: 150/78 (02/09/2023) Mike Patino MD Cardiology: r ecenrtly had right GSV occluded Mike Patino MD Cardiology:Per PCP Mike Patino MD Cardiology:Increase Telmisartan from 40mg to 80mg BP today: 150/78 P rior BP: 240/112 (01/02/2023) Mike Patino MD Cardiology:recenrtly had right G SV occluded Mike Patino MD Cardiology:Added CHl orhtalidone 25 mg A lready taking telmisartan and amlodipine B P today: 240/112 P rior BP: 150/84 (08/05/2022) The following medications were removed from the medication list: Furosemide 20 Mg Tablet (Furosemide) His updated medication list for this problem includes: Telmisartan 40 Mg Tablet (Telmisartan) Chlorthalidone 25 Mg Tablet (Chlorthalidone) ..... Take 1 tablet by mouth every day Amlodipine 10 Mg Tablet (Amlodipine) Mike Patino MD Cardiology:Will arra douglase an RPM. B P today: 150/84 P rior BP: 167/86 (04/14/2022) His updated medication list for this problem includes: Furosemide 20 Mg Tablet (Furosemide) Telmisartan 40 Mg Tablet (Telmisartan) Amlodipine 10 Mg Tablet (Amlodipine) Mike Patino MD Cardiology:Pt had an Venaseal done of the left GSV and he seems to have done well. His post venous study showed closure of the vein. His varicosities are looking better and he is not having any issues. He has swelling and varicose veins with reflux. Will do the same procedure on the right GSV. Mike Patino MD Cardiology:Pt has si gnificant swelling in both legs. He has Sx of pain and some swelling in spite of trying compression socks. Will plan for venaseal to close the left GSV first as it is worse Mike Patino MD Cardiology: B P today: 167/86 P rior BP: 146/78 (01/13/2022) Mike Patino MD Cardiology:Per PCP Mike Patino MD Cardiology Mike Patino MD Cardiology Mike Patino MD Cardiology Mike Patino MD Cardiology: B P today: 146/78 Mike Patino MD Cardiology:It is spe cifically the left leg that bothers him. He has them bilaterally but the left are clinically more prominent. Will check a reflux venous study and continue compressiion socks. Mike Patino MD Date Name PROBNP, N TERMINAL BASIC METABOLIC PANE L W/EGFR Complete Echo Venous Doppler Unila teral RLE RPM (remote patient monitoring) VenaSeal Venous Doppler Unila teral LLE VenaSeal Venous Doppler Bilat eral LE - Reflux HISTORY OF PROCEDURES Procedure Date Procedure Name Provider Procedure Notes S tatus EKG Mike Patino MD completed
[2024-06-19 09:54] LABS: LDL Cholesterol Direct 116 mg/dL
[2024-06-19 10:13] LABS: Prostate Specific Antigen 0.4 ng/mL (< OR = 4.0); Thyroid Stimulating Hormone 0.761 uIU/mL (0.465-4.680)
[2024-06-19 10:35] LABS: Add Urine Microscopic? YES; Appearance Urine Clear (Clear); Bacteria Urine None Seen /hpf; Bilirubin Urine Negative (Negative); Blood Urine Negative (Negative); Color Urine Yellow (Yellow); Glucose Urine UA Negative (Negative); Ketones Urine Negative (Negative); Leukocyte Esterase Ur 2+ LEU/UL (Negative); Need Manual Microscopic Reviewed; Nitrate Urine Negative (Negative); Non Pathogenic Casts 0-2; Protein Urine Negative (Negative); RBC Urine 0-2 /hpf (0-2); Specific Grav Ur 1.015 (1.001-1.035); Squamous Epithelial Cell Urine None Seen /hpf (Few); Urobilinogen Urine 0.2 mg/dL (<2.0); WBC Urine 0-5 /hpf (0-3)
== END 2024-06-19 09:12 | disposition home or self-care (01) ==
LOC: ANHLAB 09:12
PROVIDERS: PCP Family Medicine; Visit Provider Family Medicine
DX: R35.1 Nocturia (principal); R73.03 Prediabetes; E78.5 Hyperlipidemia, unspecified; I10 Essential (primary) hypertension; R53.83 Other fatigue
CPT/HCPCS: 36415; 80053; 80061; 81001; 83036; 84153; 84443; 85027